=== PATIENT | female | born 1955 | race Hispanic/Latino ===

== ENCOUNTER 2020-04-16 21:32 | Inpatient (IN) | payer OTHER, MEDICARE ==
[2020-04-16] MEDS ORDERED: LORazepam 2 MG/ML VIAL ONE (21:52)
[2020-04-16] MEDS ORDERED: LORazepam 2 MG/ML VIAL IV ONE (21:55)
--- NOTE | 2020-04-16 22:13 | Emergency Department Report ---
ED Neuro Deficit HPI - General Chief Complaint: Neuro Symptoms/Deficit Stated Complaint: STROKE LIKE SYMPTOMS Time Seen by Provider: 04/16/20 21:39 Source: patient Mode of arrival: Wheelchair Limitations: No Limitations - History of Present Illness Initial Comments: [facility] Tele[facility]urology Consult [facility] Date of Service: 04/16/2020 21:36:36 Impression: Rule Out Acute Ischemic Stroke Comments/Sign-Out: 1 week of nausea vomiting, shaking to the right side. Would recommend that she obtains a CTA head/neck. In addition 1 gram Keppra IV x 1. In addition to this no alteplase, she is outside of the window. No Neuro IR. Right-sided 70% stenosis, will need vascular surgery consultation. Metrics: Last Known Well: 04/14/2020 21:45:09 [facility] Notification Time: 04/16/2020 21:36:24 Arrival Time: 04/16/2020 21:40:00 Stamp Time: 04/16/2020 21:36:36 Time First Login Attempt: 04/16/2020 21:41:21 Video Start Time: 04/16/2020 21:41:21 Symptoms: left sided deficits NIHSS Start Assessment Time: 04/16/2020 21:46:07 Patient is not a candidate for Alteplase/Activase. Patient was not deemed candidate for Alteplase/Activase thrombolytics because of Last Well Known Above 4.5 Hours. Video End Time: 04/16/2020 21:58:54 CT head showed no acute hemorrhage or acute core infarct. Clinical Presentation is Suggestive of Large Vessel Occlusive Disease, Recommendations are as Follows Reviewed, No Indication of Large Vessel Occlusive Thrombus, Patient is not an HEMANT Candidate. ED Physician notified of diagnostic impression and management plan on 04/16/2020 21:58:55 History of Present Illness: Patient is a 64 year old Male. Patient with history of TIA years ago, now with left sided deficits. She was on a cell phone and her left side became weak. Sudden onset that took place. She has had a headache for last few days, and has been vomiting a lot. She has had vomiting througouth the night. She was hiccuping this evening. The last time she felt normal was . She is shaking, and 1 mg of ativan is going ot be given. Past Medical History: Hypertension Anticoagulant use: Antiplatelet use: asa Examination: 1A: Level of Consciousness - Alert; keenly responsive + 0 1B: Ask Month and Age - Both Questions Right + 0 1C: Blink Eyes & Squeeze Hands - Performs Both Tasks + 0 2: Test Horizontal Extraocular Movements - Normal + 0 3: Test Visual Khan - No Visual Loss + 0 4: Test Facial Palsy (Use Grimace if Obtunded) - Normal symmetry + 0 5A: Test Left Arm Motor Drift - No Drift for 10 Seconds + 0 5B: Test Right Arm Motor Drift - No Drift for 10 Seconds + 0 6A: Test Left Leg Motor Drift - No Drift for 5 Seconds + 0 6B: Test Right Leg Motor Drift - No Drift for 5 Seconds + 0 7: Test Limb Ataxia (FNF/Heel-Wallace) - No Ataxia + 0 8: Test Sensation - Normal; No sensory loss + 0 9: Test Language/Aphasia - Normal; No aphasia + 0 10: Test Dysarthria - Normal + 0 11: Test Extinction/Inattention - No abnormality + 0 NIHSS Score: 0 Patient/Family was informed the Neurology Consult would happen via TeleHealth consult by way of interactive audio and video telecommunications and consented to receiving care in this manner. Due to the immediate potential for life-threatening deterioration due to underlying acute neurologic illness, I spent 35 minutes providing critical care. This time includes time for face to face visit via telemedicine, review of medical records, imaging studies and discussion of findings with providers, the patient and/or family. Dr Jean Pierre Reyes [facility] Case [id number] - Related Data Allergies/Adverse Reactions: Allergies Allergy/AdvReac Type Severity Reaction Status Date / Time amoxicillin [From Augmentin] Allergy Hives Verified 04/16/20 23:00 clavulanic acid Allergy Hives Verified 04/16/20 23:00 [From Augmentin] ED Review of Systems ROS: Stated complaint: STROKE LIKE SYMPTOMS Other details as noted in HPI ED Neuro Physical Exam - General Limitations: No Limitations Suspected Stroke: Yes - NIHSS Assessment Interval: Baseline (see note) 1a. Level of Consciousness: alert/keenly responsive (with sz) 1b. LOC Questions: aphasic 1c. LOC Commands: performs tasks correctly 2. Best Gaze: normal 3. Visual: no visual loss 4. Facial Palsy: normal symmetrical movement 5b. Motor Arm Right: no drift 5a. Motor Arm Left: drift 6a. Motor Leg Left: drift 6b. Motor Leg Right: no drift 7. Limb Ataxia: absent 8. Sensory: mild/moderate sensory loss 9. Best Language: mild/moderate aphasia 10. Dysarthria: normal 11. Extinction/Inattention: no abnormality Total Score: 6 Stroke Severity: Moderate Stroke ED Course Vital Signs 04/16/20 04/16/20 04/16/20 21:54 22:30 22:58 Temperature 98.7 F Pulse Rate 116 H 110 H 110 H Respiratory 12 14 25 H Rate Blood Pressure 165/84 168/82 168/82 O2 Sat by Pulse 98 99 98 Oximetry 04/16/20 04/16/20 04/16/20 23:00 23:15 23:30 Temperature Pulse Rate 110 H 116 H 103 H Respiratory 15 18 18 Rate Blood Pressure 162/86 160/86 173/89 O2 Sat by Pulse 99 98 98 Oximetry 04/16/20 04/17/20 04/17/20 23:46 00:00 00:15 Temperature Pulse Rate 131 H 112 H 110 H Respiratory 24 15 18 Rate Blood Pressure 174/104 166/92 163/82 O2 Sat by Pulse 98 100 98 Oximetry 04/17/20 04/17/20 04/17/20 00:30 00:45 01:00 Temperature Pulse Rate 121 H 112 H 110 H Respiratory 25 H 13 14 Rate Blood Pressure 176/104 154/89 171/91 O2 Sat by Pulse 98 98 99 Oximetry - Lab Data Result diagrams: 04/16/20 22:07 04/16/20 22:07 Lab Results 04/16/20 04/16/20 04/16/20 Range/Units 22:07 22:07 22:07 WBC 10.4 (4.5-11.0) K/mm3 RBC 3.46 L (3.65-5.03) M/mm3 Hgb 8.9 L (10.1-14.3) gm/dl Hct 27.0 L (30.3-42.9) % MCV 78 L (79-97) fl MCH 26 L (28-32) pg MCHC 33 (30-34) % RDW 17.0 H (13.2-15.2) % Plt Count 324 (140-440) K/mm3 Lymph % (Auto) 30.6 (13.4-35.0) % [place] % (Auto) 11.8 H (0.0-7.3) % Eos % (Auto) 2.9 (0.0-4.3) % Baso % (Auto) 0.6 (0.0-1.8) % Lymph # 3.2 (1.2-5.4) K/mm3 [place] # 1.2 H (0.0-0.8) K/mm3 Eos # 0.3 (0.0-0.4) K/mm3 Baso # 0.1 (0.0-0.1) K/mm3 Seg Neutrophils % 54.1 (40.0-70.0) % Seg Neutrophils # 5.6 (1.8-7.7) K/mm3 PT 13.8 (12.2-14.9) Sec. INR 1.05 (0.87-1.13) APTT 26.2 (24.2-36.6) Sec. Thrombin Time 17.5 (15.1-19.6) Sec. Sodium 136 L (137-145) mmol/L Potassium 4.2 (3.6-5.0) mmol/L Chloride 98.7 (98-107) mmol/L Carbon Dioxide 22 (22-30) mmol/L Anion Gap 20 mmol/L BUN 10 (7-17) mg/dL Creatinine 0.9 (0.6-1.2) mg/dL Estimated GFR > 60 ml/min BUN/Creatinine Ratio 11 % Glucose 236 H (65-100) mg/dL POC Glucose (70-105) Calcium 8.8 (8.4-10.2) mg/dL Total Bilirubin < 0.20 (0.1-1.2) mg/dL AST 14 (5-40) units/L ALT 12 (7-56) units/L Alkaline Phosphatase 47 (35-129) units/L Total Creatine Kinase 67 (30-135) units/L CK-MB (CK-2) < 1.0 (0.0-4.0) ng/mL CK-MB (CK-2) Rel Index 1.4 (0-4) Troponin T < 0.010 (0.00-0.029) ng/mL Total Protein 6.7 (6.3-8.2) g/dL Albumin 3.4 L (3.9-5) g/dL Albumin/Globulin Ratio 1.0 % TSH (0.270-4.200) mlU/mL 04/16/20 04/16/20 Range/Units 22:07 22:37 WBC (4.5-11.0) K/mm3 RBC (3.65-5.03) M/mm3 Hgb (10.1-14.3) gm/dl Hct (30.3-42.9) % MCV (79-97) fl MCH (28-32) pg MCHC (30-34) % RDW (13.2-15.2) % Plt Count (140-440) K/mm3 Lymph % (Auto) (13.4-35.0) % [place] % (Auto) (0.0-7.3) % Eos % (Auto) (0.0-4.3) % Baso % (Auto) (0.0-1.8) % Lymph # (1.2-5.4) K/mm3 [place] # (0.0-0.8) K/mm3 Eos # (0.0-0.4) K/mm3 Baso # (0.0-0.1) K/mm3 Seg Neutrophils % (40.0-70.0) % Seg Neutrophils # (1.8-7.7) K/mm3 PT (12.2-14.9) Sec. INR (0.87-1.13) APTT (24.2-36.6) Sec. Thrombin Time (15.1-19.6) Sec. Sodium (137-145) mmol/L Potassium (3.6-5.0) mmol/L Chloride (98-107) mmol/L Carbon Dioxide (22-30) mmol/L Anion Gap mmol/L BUN (7-17) mg/dL Creatinine (0.6-1.2) mg/dL Estimated GFR ml/min BUN/Creatinine Ratio % Glucose (65-100) mg/dL POC Glucose 238 H (70-105) Calcium (8.4-10.2) mg/dL Total Bilirubin (0.1-1.2) mg/dL AST (5-40) units/L ALT (7-56) units/L Alkaline Phosphatase (35-129) units/L Total Creatine Kinase (30-135) units/L CK-MB (CK-2) (0.0-4.0) ng/mL CK-MB (CK-2) Rel Index (0-4) Troponin T (0.00-0.029) ng/mL Total Protein (6.3-8.2) g/dL Albumin (3.9-5) g/dL Albumin/Globulin Ratio % TSH 0.555 (0.270-4.200) mlU/mL Critical care time in (mins) excluding proc time.: 35 Critical care attestation.: If time is entered above; I have spent that time in minutes in the direct care of this critically ill patient, excluding procedure time. ED Disposition Clinical Impression: Left-sided weakness, Numbness on left side Hypertension Qualifiers: Hypertension type: essential hypertension Qualified Code(s): I10 - Essential (primary) hypertension Anemia Qualifiers: Anemia type: unspecified type Qualified Code(s): D64.9 - Anemia, unspecified Disposition: 09 OP ADMIT IP TO THIS HOSP Is pt being admited?: Yes Does the pt Need Aspirin: Yes Condition: Serious Time of Disposition: 01:38
--- NOTE | 2020-04-16 22:15 | Cat Scan Report ---
CT head/brain wo con INDICATION: Stroke symptoms. TECHNIQUE: Routine CT head. All CT scans at this location are performed using CT dose reduction for A JOHN by means of automated exposure control. COMPARISON: None. FINDINGS: Intracranial: Rodriguez-white matter differentiation is maintained. No intracranial hemorrhage. No extra a xial collection. Prominent ventricular caliber with sharp callososeptal angle. No herniation. Remote thalamic lacunar infarctions. Sinuses: Paranasal sinuses and mastoid air cells are essentially clear. Orbits: Globes are intact. Calvarium: No acute fracture. IMPRESSION: 1. No evidence for acute infarction. No hemorrhage. 2. Prominent ventricular caliber out of portion for atrophy. There is nonspecific but can be seen in the setting normal pressure hydrocephalus. 3. Remote thalamic lacunar infarctions. Informed Dr. Kerr at 9:03pm Signer Name: Khalif Burch MD Signed: 04/16/2020 10:10 PM Workstation Name: [id number]
[2020-04-16 22:16] LABS: Basophils # (Auto) 0.1 K/mm3 (0.0-0.1); Basophils % (Auto) 0.6 % (0.0-1.8); Eosinophils # (Auto) 0.3 K/mm3 (0.0-0.4); Eosinophils % (Auto) 2.9 % (0.0-4.3); Hemoglobin 8.9 gm/dl (10.1-14.3); Lymphocytes # (Auto) 3.2 K/mm3 (1.2-5.4); Lymphocytes % (Auto) 30.6 % (13.4-35.0); Mean Corpuscular HGB Conc 33 % (30-34); Mean Corpuscular Volume 78 fl (79-97); Monocytes # (Auto) 1.2 K/mm3 (0.0-0.8); Monocytes % (Auto) 11.8 % (0.0-7.3); Platelet Count 324 K/mm3 (140-440); Red Blood Count 3.46 M/mm3 (3.65-5.03)
[2020-04-16 22:29] LABS: INR 1.05 (0.87-1.13)
[2020-04-16 22:30] LABS: Partial Thromboplastin Time 26.2 Sec. (24.2-36.6); Thrombin Time 17.5 Sec. (15.1-19.6)
--- NOTE | 2020-04-16 22:37 | Emergency Department Report ---
HPI - General Chief Complaint: Neuro Symptoms/Deficit Time Seen by Provider: 04/16/20 21:39 - HPI HPI: This is a 64-year-old -[place] female who presents to the emergency department from home with a complaint of nausea and vomiting and left-sided n umbness and weakness. The patient has been having nausea and vomiting at night the past 4 nights. The patient says "it hits me out of nowhere and I throw up like a [place]." However the reason the patient came into the emergency department this evening is because the patient tried to use the phone this evening, around 8 PM, and began having left arm numbness and weakness. Then the patient began feeling as if the left side of her mouth was numb. She called for her who brought her in to be seen. She did not take anything for symptoms prior to presentation. Patient has been having intermittent frontal headaches over the past few days. She denies any change in vision but sometimes says that she sees "halos", but also attributes that to her new glasses. The patient follows at [facility] for primary care. No recent travel or sick contacts at home. ED Past Medical Hx - Past Medical History Previous Medical History?: Yes Hx Hypertension: Yes Hx CVA: (TIA) - Social History Smoking Status: Never Smoker Substance Use Type: None ED Review of Systems ROS: Stated complaint: STROKE LIKE SYMPTOMS Other details as noted in HPI Comment: All other systems reviewed and negative Constitutional: denies: chills, fever Eyes: denies: eye pain, vision change ENT: denies: ear pain, throat pain Respiratory: denies: cough, shortness of breath Cardiovascular: denies: chest pain, palpitations Gastrointestinal: nausea, vomiting. denies: abdominal pain Genitourinary: denies: dysuria, discharge Musculoskeletal: denies: back pain, arthralgia Skin: denies: rash, lesions Neurological: headache, weakness, numbness Physical Exam - Physical Exam Vital Signs: Vital Signs 04/16/20 21:54 Temperature 98.7 F Pulse Rate 116 H Respiratory 12 Rate Blood Pressure 165/84 O2 Sat by Pulse 98 Oximetry Physical Exam: GENERAL: The patient is well-developed well-nourished. HENT: Normocephalic. Atraumatic. Patient has moist mucous membranes. EYES: Extraocular motions are intact. Pupils equal reactive to light bilaterally. No nystagmus. NECK: Supple. Trachea is midline. CHEST/LUNGS: Clear to auscultation. There is no respiratory distress noted. HEART/CARDIOVASCULAR: Regular. There is mild tachycardia. There is no murmur. ABDOMEN: Abdomen is soft, nontender. Patient has normal bowel sounds. There is no abdominal distention. SKIN: Skin is warm and dry. NEURO: The patient is awake, alert, and oriented. The patient is cooperative. Decrease sensation to the left side of the face, arm and leg when compared to the right side. No facial asymmetry. Normal speech. There is left arm weakness without significant movement against gravity. MUSCULOSKELETAL: There is no tenderness or deformity. Radial pulse +2/4 bilaterally. ED Course Vital Signs 04/16/20 21:54 Temperature 98.7 F Pulse Rate 116 H Respiratory 12 Rate Blood Pressure 165/84 O2 Sat by Pulse 98 Oximetry - Reevaluation(s) Reevaluation #1: 04/16/20 23:49 Lab Results 04/16/20 04/16/20 04/16/20 Range/Units 22:07 22:07 22:07 WBC 10.4 (4.5-11.0) K/mm3 RBC 3.46 L (3.65-5.03) M/mm3 Hgb 8.9 L (10.1-14.3) gm/dl Hct 27.0 L (30.3-42.9) % MCV 78 L (79-97) fl MCH 26 L (28-32) pg MCHC 33 (30-34) % RDW 17.0 H (13.2-15.2) % Plt Count 324 (140-440) K/mm3 Lymph % (Auto) 30.6 (13.4-35.0) % [place] % (Auto) 11.8 H (0.0-7.3) % Eos % (Auto) 2.9 (0.0-4.3) % Baso % (Auto) 0.6 (0.0-1.8) % Lymph # 3.2 (1.2-5.4) K/mm3 [place] # 1.2 H (0.0-0.8) K/mm3 Eos # 0.3 (0.0-0.4) K/mm3 Baso # 0.1 (0.0-0.1) K/mm3 Seg Neutrophils % 54.1 (40.0-70.0) % Seg Neutrophils # 5.6 (1.8-7.7) K/mm3 PT 13.8 (12.2-14.9) Sec. INR 1.05 (0.87-1.13) APTT 26.2 (24.2-36.6) Sec. Thrombin Time 17.5 (15.1-19.6) Sec. Sodium 136 L (137-145) mmol/L Potassium 4.2 (3.6-5.0) mmol/L Chloride 98.7 (98-107) mmol/L Carbon Dioxide 22 (22-30) mmol/L Anion Gap 20 mmol/L BUN 10 (7-17) mg/dL Creatinine 0.9 (0.6-1.2) mg/dL Estimated GFR > 60 ml/min BUN/Creatinine Ratio 11 % Glucose 236 H (65-100) mg/dL POC Glucose (70-105) Calcium 8.8 (8.4-10.2) mg/dL Total Bilirubin < 0.20 (0.1-1.2) mg/dL AST 14 (5-40) units/L ALT 12 (7-56) units/L Alkaline Phosphatase 47 (35-129) units/L Total Creatine Kinase 67 (30-135) units/L CK-MB (CK-2) < 1.0 (0.0-4.0) ng/mL CK-MB (CK-2) Rel Index 1.4 (0-4) Troponin T < 0.010 (0.00-0.029) ng/mL Total Protein 6.7 (6.3-8.2) g/dL Albumin 3.4 L (3.9-5) g/dL Albumin/Globulin Ratio 1.0 % TSH (0.270-4.200) mlU/mL 04/16/20 04/16/20 Range/Units 22:07 22:37 WBC (4.5-11.0) K/mm3 RBC (3.65-5.03) M/mm3 Hgb (10.1-14.3) gm/dl Hct (30.3-42.9) % MCV (79-97) fl MCH (28-32) pg MCHC (30-34) % RDW (13.2-15.2) % Plt Count (140-440) K/mm3 Lymph % (Auto) (13.4-35.0) % [place] % (Auto) (0.0-7.3) % Eos % (Auto) (0.0-4.3) % Baso % (Auto) (0.0-1.8) % Lymph # (1.2-5.4) K/mm3 [place] # (0.0-0.8) K/mm3 Eos # (0.0-0.4) K/mm3 Baso # (0.0-0.1) K/mm3 Seg Neutrophils % (40.0-70.0) % Seg Neutrophils # (1.8-7.7) K/mm3 PT (12.2-14.9) Sec. INR (0.87-1.13) APTT (24.2-36.6) Sec. Thrombin Time (15.1-19.6) Sec. Sodium (137-145) mmol/L Potassium (3.6-5.0) mmol/L Chloride (98-107) mmol/L Carbon Dioxide (22-30) mmol/L Anion Gap mmol/L BUN (7-17) mg/dL Creatinine (0.6-1.2) mg/dL Estimated GFR ml/min BUN/Creatinine Ratio % Glucose (65-100) mg/dL POC Glucose 238 H (70-105) Calcium (8.4-10.2) mg/dL Total Bilirubin (0.1-1.2) mg/dL AST (5-40) units/L ALT (7-56) units/L Alkaline Phosphatase (35-129) units/L Total Creatine Kinase (30-135) units/L CK-MB (CK-2) (0.0-4.0) ng/mL CK-MB (CK-2) Rel Index (0-4) Troponin T (0.00-0.029) ng/mL Total Protein (6.3-8.2) g/dL Albumin (3.9-5) g/dL Albumin/Globulin Ratio % TSH 0.555 (0.270-4.200) mlU/mL - Consultations Consultation #1: 04/16/20 23:51 Patient was seen by the telemedicine neurologist, Dr. Reyes, immediately upon initiation of the code stroke. He feels that the patient symptoms questionably began a few days ago with the nausea, vomiting and generalized weakness, and therefore the patient is not a TPA candidate. He did recommend CT angiography studies of the head and neck. ED Medical Decision Making - Lab Data Result diagrams: 04/16/20 22:07 04/16/20 22:07 - EKG Data -: EKG Interpreted by [place] EKG shows normal: sinus rhythm, axis, intervals, QRS complexes, ST-T waves Rate: tachycardia (113 bpm) - EKG Data When compared to previous EKG there are: previous EKG unavailable Interpretation: normal EKG (With tachycardia at 113 bpm.) - Radiology Data Radiology results: report reviewed CT head/brain wo con INDICATION: Stroke symptoms. TECHNIQUE: Routine CT head. All CT scans at this location are performed using CT dose reduction for ALARA by means of automated exposure control. COMPARISON: None. FINDINGS: Intracranial: Rodriguez-white matter differentiation is maintained. No intracranial hemorrhage. No extra axial collection. Prominent ventricular caliber with sharp callososeptal angle. No herniation. Remote thalamic lacunar infarctions. Sinuses: Paranasal sinuses and mastoid air cells are essentially clear. Orbits: Globes are intact. Calvarium: No acute fracture. IMPRESSION: 1. No evidence for acute infarction. No hemorrhage. 2. Prominent ventricular caliber out of portion for atrophy. There is nonspecific but can be seen in the setting normal pressure hydrocephalus. 3. Remote thalamic lacunar infarctions. CT angio head, CT angio neck HISTORY: Stroke symptoms. COMPARISON: None. TECHNIQUE: CTA of the neck and head is performed after IV contrast. 3-D/MIP reformats were postprocessed. Percentage stenosis is determined by direct quantitative measurements of diseased internal carotid artery diameter compared with normal distal internal carotid artery reference segments or by criteria similar to NASCET where applicable. All CT scans at this location are performed using CT dose reduction for ALARA by means of automated exposure control. FINDINGS: CTA NECK: Aortic arch: No significant abnormality. Cervical vertebral arteries: No occlusion or hemodynamically significant stenosis. Common Carotid arteries: Atherosclerosis of the bilateral carotid bulbs. There is approximately 50% stenosis of the right carotid bulb. No significant narrowing of the left carotid bulb. Internal carotid arteries: Moderate approximately 70% stenosis of the right proximal internal carotid artery. Enlarged multinodular thyroid gland. CTA HEAD: Intracranial vertebral arteries: No occlusion or significant stenosis. Basilar artery: No occlusion or significant stenosis. Posterior cerebral arteries: No occlusion or significant stenosis. Intracranial internal carotid arteries: No occlusion or significant stenosis. Anterior cerebral arteries: No occlusion or significant stenosis. Middle cerebral arteries: No occlusion or significant stenosis. No aneurysm. Additional findings: None. IMPRESSION: 1. CTA NECK: Atherosclerosis with approximately 70% stenosis of the proximal right internal carotid artery. 2. CTA HEAD: No occlusion or significant stenosis of the major intracranial vasculature. - Medical Decision Making This patient presents to the emergency department complaint of left arm numbness and weakness that started earlier this evening. However the patient has been having severe nausea and vomiting every evening, over the past 4 days, that has been associated with some generalized weakness complaints. On examination the patient has subjective decrease sensation to the left face/arm/leg and has significant left upper extremity drift. The patient had a CT scan of the head immediately upon initiation of the code stroke. This resulted as negative for any acute hemorrhage or signs of acute ischemia or large vessel occlusion. The patient had a CT angiography of the head and neck immediately afterwards that resulted as showing a 70% stenosis to the right internal carotid artery, but otherwise no obvious occlusion or thrombus. The patient's labs have been mostly unremarkable except for some anemia with a hemoglobin of 8.9. The patient will be admitted to the hospital for further evaluation and treatment and was accepted for admission by the hospitalist, Dr. Harry. Critical Care Time: Yes Critical care time in (mins) excluding proc time.: 35 Critical care attestation.: If time is entered above; I have spent that time in minutes in the direct care of this critically ill patient, excluding procedure time. Critical care time was spent on this patient in doing her initial evaluation, multiple re- evaluations, ordering and interpretation of labs and imaging, discussion with the radiologist and telemedicine neurologist, and multiple discussions with the patient. Critical Care Time: 35 minutes ED Disposition Clinical Impression: Left-sided weakness, Numbness on left side CVA (cerebral vascular accident) Qualifiers: CVA mechanism: unspecified Qualified Code(s): I63.9 - Cerebral infarction, unspecified Hypertension Qualifiers: Hypertension type: essential hypertension Qualified Code(s): I10 - Essential (primary) hypertension Anemia Qualifiers: Anemia type: unspecified type Qualified Code(s): D64.9 - Anemia, unspecified Disposition: DC-09 OP ADMIT IP TO THIS HOSP Is pt being admited?: Yes Condition: Serious Time of Disposition: 23:12 - Assessment Assessment Interval: Baseline - Level of Consciousness 1a. Level of Consciousness: alert/keenly responsive - LOC Questions 1b. LOC Questions: answers both correctly - LOC Command 1c. LOC Commands: performs tasks correctly - Best Gaze 2. Best Gaze: normal - Visual 3. Visual: no visual loss - Facial Palsy 4. Facial Palsy: normal symmetrical movement - Motor Arm 5a. Motor Arm Left: no gravity effort 5b. Motor Arm Right: no drift - Motor Leg 6a. Motor Leg Left: no drift 6b. Motor Leg Right: no drift - Limb Ataxia 7. Limb Ataxia: absent - Sensory 8. Sensory: mild/moderate sensory loss - Best Language 9. Best Language: no aphasia - Dysarthria 10. Dysarthria: normal - Extinction and Inattention 11. Extinction/Inattention: no abnormality - Scoring Total Score: 4 Stroke Severity: Minor Stroke
[2020-04-16 22:46] LABS: Alanine Aminotransferase 12 units/L (7-56); Albumin 3.4 g/dL (3.9-5); BUN/Creatinine Ratio 11; Blood Urea Nitrogen 10 mg/dL (7-17); Calcium 8.8 mg/dL (8.4-10.2); Hemolysis Index 1
[2020-04-16 22:48] LABS: Creatine Kinase MB < 1.0 ng/mL (0.0-4.0)
--- NOTE | 2020-04-16 23:05 | Cat Scan Report ---
CT angio head, CT angio neck HISTORY: Stroke symptoms. COMPARISON: None. TECHNIQUE: CTA of the neck and head is performed after IV contrast. 3-D/MIP reformats were postproces sed. Percentage stenosis is determined by direct quantitative measurements of diseased internal anthony tid artery diameter compared with normal distal internal carotid artery reference segments or by crit eria similar to NASCET where applicable. All CT scans at this location are performed using CT dose re duction for ALARA by means of automated exposure control. FINDINGS: CTA NECK: Aortic arch: No significant abnormality. Cervical vertebral arteries: No occlusion or hemodynamically significant stenosis. Common Carotid arteries: Atherosclerosis of the bilateral carotid bulbs. There is approximately 50% s tenosis of the right carotid bulb. No significant narrowing of the left carotid bulb. Internal carotid arteries: Moderate approximately 70% stenosis of the right proximal internal carotid artery. Enlarged multinodular thyroid gland. CTA HEAD: Intracranial vertebral arteries: No occlusion or significant stenosis. Basilar artery: No occlusion or significant stenosis. Posterior cerebral arteries: No occlusion or significant stenosis. Intracranial internal carotid arteries: No occlusion or significant stenosis. Anterior cerebral arteries: No occlusion or significant stenosis. Middle cerebral arteries: No occlusion or significant stenosis. No aneurysm. Additional findings: None. IMPRESSION: 1. CTA NECK: Atherosclerosis with approximately 70% stenosis of the proximal right internal carotid artery. 2. CTA HEAD: No occlusion or significant stenosis of the major intracranial vasculature. Signer Name: Khalif Burch MD Signed: 04/16/2020 11:01 PM Workstation Name: [id number]
[2020-04-16] MEDS ORDERED: MAGNESIUM HYDROXIDE (MOM) ORAL LIQD UDC PO PRN ×2 (23:22)
[2020-04-16] MEDS ORDERED: ONDANSETRON 4 MG/2 ML INJ IV PRN ×2 (23:22)
[2020-04-16] MEDS ORDERED: METOCLOPRAMIDE 10 MG TAB PO PRN (23:22)
[2020-04-16] MEDS ORDERED: PROMETHAZINE 25 MG RECT SUPP PR PRN (23:22)
[2020-04-16] MEDS ORDERED: ACETAMINOPHEN 325 MG TAB PO PRN ×2 (23:22)
--- NOTE | 2020-04-16 23:36 | History and Physical Report ---
History of Present Illness Date of examination: 04/16/20 Date of admission: 04/16/2020 Chief complaint: Left Sided Weakness History of present illness: 64-year-old -[place] female presenting to the emergency room today complaining of left-sided weakness and numbness. Patient also indicates that she has been having nausea and vomiting intermittently over the past 4 days. She was using the phone earlier this evening and suddenly started having left upper extremity numbness and weakness. She also felt that the left side of her face was feeling numb and had some mild slurred speech. She has also been having some headache for the past few days, she denies any blurry vision. Patient denies any fever or chills, no chest pain no shortness of breath, denies any sick contacts and no recent travel, denies any contact with anyone with COVID-19. Evaluation in the emergency room today reveals Atherosclerosis with approximately 70% stenosis of the proximal right internal carotid artery on CTA of the neck. Past History Past Medical History: hypertension, other (TIA) Past Surgical History: No surgical history Social history: no significant social history Family history: no significant family history Medications and Allergies Allergies Allergy/AdvReac Type Severity Reaction Status Date / Time amoxicillin [From Augmentin] Allergy Hives Verified 04/16/20 23:00 clavulanic acid Allergy Hives Verified 04/16/20 23:00 [From Augmentin] Home Medications Medication Instructions Recorded Confirmed Last Taken Type Amlodipine Besylate [Norvasc] 5 mg PO DAILY 04/17/20 04/17/20 Unknown History Aspirin 325 mg PO ONCE 04/17/20 04/17/20 Unknown History Insulin NPH Human Isophane 22 unit SQ BID 04/17/20 04/17/20 Unknown History [Novolin N] Metformin HCl [metFORMIN] 1,000 mg PO BID 04/17/20 04/17/20 Unknown History lisinopriL [Zestril TAB] 10 mg PO QDAY 04/17/20 04/17/20 Unknown History Active Meds: Active Medications Acetaminophen (Tylenol) 650 mg PO Q4H PRN PRN Reason: Pain MILD(1-3)/Fever >100.5/WEISS Acetaminophen (Tylenol) 650 mg PO Q4H PRN PRN Reason: Pain, Mild (1-3) Aspirin (Aspirin) 325 mg PO QDAY [facility] Atorvastatin Calcium (Lipitor) 40 mg PO QHS [facility] Bisacodyl (Dulcolax) 10 mg [place] QDAY PRN PRN Reason: Constipation Magnesium Hydroxide (Milk Of Magnesia) 30 ml PO Q4H PRN PRN Reason: Constipation Magnesium Hydroxide (Milk Of Magnesia) 30 ml PO Q4H PRN PRN Reason: Constipation Metoclopramide HCl (Reglan) 10 mg PO Q6H PRN PRN Reason: Nausea And Vomiting Ondansetron HCl (Zofran) 4 mg IV Q8H PRN PRN Reason: Nausea And Vomiting Ondansetron HCl (Zofran) 4 mg IV Q8H PRN PRN Reason: Nausea And Vomiting Promethazine HCl (Phenergan) 25 mg AK Q6H PRN PRN Reason: Nausea And Vomiting Sodium Chloride (Sodium Chloride Flush Syringe 10 Ml) 10 ml IV BID [facility] Sodium Chloride (Sodium Chloride Flush Syringe 10 Ml) 10 ml IV PRN PRN PRN Reason: LINE FLUSH Sodium Chloride (Sodium Chloride Flush Syringe 10 Ml) 10 ml INJ PRN PRN PRN Reason: LINE FLUSH Review of Systems Constitutional: no fever, no chills Ears, nose, mouth and throat: no nasal congestion, no sore throat Cardiovascular: no chest pain, no palpitations Respiratory: no cough, no shortness of breath Gastrointestinal: no abdominal pain, no nausea, no vomiting, no diarrhea Genitourinary Female: no pelvic pain, no flank pain, no dysuria, no hematuria Musculoskeletal: no neck pain, no low back pain Integumentary: no rash, no pruritis Neurological: weakness (Left Sided), no headaches, no confusion Psychiatric: no anxiety, no depression Exam - Constitutional Vitals: Temp Pulse Resp BP Pulse Ox 98.7 F 110 H 14 168/82 99 04/16/20 21:54 04/16/20 22:30 04/16/20 22:30 04/16/20 22:30 04/16/20 22:30 General appearance: Present: no acute distress, well-nourished - EENT Eyes: Present: PERRL, EOM intact. Absent: scleral icterus ENT: hearing intact, clear oral mucosa, dentition normal - Neck Neck: Present: supple - Respiratory Respiratory effort: normal Respiratory: bilateral: CTA - Cardiovascular Rhythm: regular Heart Sounds: Present: S1 & S2. Absent: gallop, systolic murmur, diastolic murmur, rub - Extremities Extremities: no ischemia, pulses intact, pulses symmetrical, No edema, Full ROM Peripheral Pulses: within normal limits - Abdominal General gastrointestinal: Present: soft, non-tender, non-distended, normal bowel sounds. Absent: mass - Integumentary Integumentary: Present: clear, warm, dry. Absent: rash - Musculoskeletal Musculoskeletal: left sided weakness (left sided weakness. Left upper extremity weakness more pronounced than the left lower extremity.) - Psychiatric Psychiatric: appropriate mood/affect, intact judgment & insight, memory intact, cooperative - Neurologic Neurologic: CNII-XII intact, moves all extremities HEART Score - HEART Score Troponin: Troponin T < 0.010 ng/mL (0.00-0.029) 04/16/20 22:07 Results - Labs CBC & Chem 7: 04/16/20 22:07 04/17/20 04:11 Labs: Abnormal lab results 04/16/20 04/16/20 04/16/20 Range/Units 22:07 22:07 22:37 RBC 3.46 L (3.65-5.03) M/mm3 Hgb 8.9 L (10.1-14.3) gm/dl Hct 27.0 L (30.3-42.9) % MCV 78 L (79-97) fl MCH 26 L (28-32) pg RDW 17.0 H (13.2-15.2) % [place] % (Auto) 11.8 H (0.0-7.3) % [place] # 1.2 H (0.0-0.8) K/mm3 Sodium 136 L (137-145) mmol/L Glucose 236 H (65-100) mg/dL POC Glucose 238 H (70-105) Albumin 3.4 L (3.9-5) g/dL Assessment and Plan - Patient Problems (1) CVA (cerebral vascular accident) Current Visit: Yes Qualifiers: CVA mechanism: unspecified Qualified Code(s): I63.9 - Cerebral infarction, unspecified Plan to address problem: Patient admitted and placed on daily aspirin. We will schedule patient for MRI. We will request a neurology follow-up. We will also request physical therapy evaluation. (2) Anemia Current Visit: Yes Status: Acute Qualifiers: Anemia type: unspecified type Qualified Code(s): D64.9 - Anemia, unspecified Plan to address problem: Possibly chronic. Will monitor CBC. (3) Hypertension Current Visit: Yes Status: Acute Qualifiers: Hypertension type: essential hypertension Qualified Code(s): I10 - Es sential (primary) hypertension Plan to address problem: We will resume routine home medications and monitor vital signs closely. (4) Diabetes mellitus Current Visit: Yes Status: Acute Plan to address problem: We will monitor Accu-Cheks. (5) DVT prophylaxis Current Visit: Yes Status: Acute Plan to address problem: Patient placed on subcutaneous Lovenox. (6) Full code status Current Visit: Yes Status: Acute
[2020-04-16] MEDS ORDERED: ASPIRIN 81 MG TAB CHEW PO ONE (23:55)
[2020-04-17 01:19] LABS: Bilirubin,Urine NEG (Negative); Blood,Urine NEG (Negative); Color,Urine Colorless (Yellow); Protein,Urine <15 mg/dL mg/dL (Negative); RBC,Urine < 1.0 /HPF (0.0-6.0); Urobilinogen,Urine < 2.0 mg/dL (<2.0); WBC,Urine < 1.0 /HPF (0.0-6.0)
[2020-04-17 01:28] LABS: Amphetamine Screen,Urine PRESUMPTIVE NEGATIVE; Benzodiazepines Screen,Urine PRESUMPTIVE NEGATIVE; Cannabinoid Screen,Urine PRESUMPTIVE NEGATIVE; Cocaine Screen,Urine PRESUMPTIVE NEGATIVE; Methadone Screen,Urine PRESUMPTIVE NEGATIVE; Opiate Screen,Urine PRESUMPTIVE NEGATIVE
[2020-04-17] MEDS ORDERED: ASPIRIN 325 MG TAB ONE (03:13)
[2020-04-17 05:08] LABS: INR 1.01 (0.87-1.13)
[2020-04-17 05:19] LABS: BUN/Creatinine Ratio 10; Blood Urea Nitrogen 8 mg/dL (7-17); Calcium 9.6 mg/dL (8.4-10.2); Chol/HDL Ratio 3.44 %; HDL Cholesterol 49 mg/dL (40-59); Hemolysis Index 5; LDL Cholesterol,Direct 105 mg/dL (50-130)
[2020-04-17] MEDS ORDERED: DEXTROSE 50% IN WATER (25GM) 50 ML SYRINGE IV PRN (06:35)
--- NOTE | 2020-04-17 10:05 | Consultation ---
History of Present Illness Consult date: 04/17/20 Reason for Consult: left side numbness and weakness History of present illness: 64-year-old -[place] female presenting to the emergency room today complaining of left-sided weakness and numbness. Patient also indicates that she has been having nausea and vomiting intermittently over the past 4 days. She was using the phone earlier this evening and suddenly started having left upper extremity numbness and weakness. She also felt that the left side of her face was feeling numb and had some mild slurred speech. She has also been weiss ving some headache for the past few days, she denies any blurry vision. Patient denies any fever or chills, no chest pain no shortness of breath, denies any sick contacts and no recent travel, denies any contact with anyone with COVID-19. Evaluation in the emergency room today reveals Atherosclerosis with approximately 70% stenosis of the proximal right internal carotid artery on CTA of the neck. Past History Past Medical History: hypertension, other (TIA) Past Surgical History: No surgical history Social history: no significant social history Family history: no significant family history Medications and Allergies Allergies Allergy/AdvReac Type Severity Reaction Status Date / Time amoxicillin [From Augmentin] Allergy Hives Verified 04/16/20 23:00 clavulanic acid Allergy Hives Verified 04/16/20 23:00 [From Augmentin] Home Medications Medication Instructions Recorded Confirmed Last Taken Type Amlodipine Besylate [Norvasc] 5 mg PO DAILY 04/17/20 04/17/20 Unknown History Aspirin 325 mg PO ONCE 04/17/20 04/17/20 Unknown History Insulin NPH Human Isophane 22 unit SQ BID 04/17/20 04/17/20 Unknown History [Novolin N] Metformin HCl [metFORMIN] 1,000 mg PO BID 04/17/20 04/17/20 Unknown History lisinopriL [Zestril TAB] 10 mg PO QDAY 04/17/20 04/17/20 Unknown History Active Meds: Active Medications Acetaminophen (Tylenol) 650 mg PO Q4H PRN PRN Reason: Pain MILD(1-3)/Fever >100.5/WEISS Acetaminophen (Tylenol) 650 mg PO Q4H PRN PRN Reason: Pain, Mild (1-3) Aspirin (Aspirin) 325 mg PO QDAY [facility] Atorvastatin Calcium (Lipitor) 40 mg PO QHS [facility] Bisacodyl (Dulcolax) 10 mg [place] QDAY PRN PRN Reason: Constipation Magnesium Hydroxide (Milk Of Magnesia) 30 ml PO Q4H PRN PRN Reason: Constipation Magnesium Hydroxide (Milk Of Magnesia) 30 ml PO Q4H PRN PRN Reason: Constipation Metoclopramide HCl (Reglan) 10 mg PO Q6H PRN PRN Reason: Nausea And Vomiting Ondansetron HCl (Zofran) 4 mg IV Q8H PRN PRN Reason: Nausea And Vomiting Ondansetron HCl (Zofran) 4 mg IV Q8H PRN PRN Reason: Nausea And Vomiting Promethazine HCl (Phenergan) 25 mg [place] Q6H PRN PRN Reason: Nausea And Vomiting Sodium Chloride (Sodium Chloride Flush Syringe 10 Ml) 10 ml IV BID [facility] Sodium Chloride (Sodium Chloride Flush Syringe 10 Ml) 10 ml IV PRN PRN PRN Reason: LINE FLUSH Sodium Chloride (Sodium Chloride Flush Syringe 10 Ml) 10 ml INJ PRN PRN PRN Reason: LINE FLUSH Review of Systems Constitutional: no fever, no chills Ears, nose, mouth and throat: no nasal congestion, no sore throat Cardiovascular: no chest pain, no palpitations Respiratory: no cough, no shortness of breath Gastrointestinal: no abdominal pain, no nausea, no vomiting, no diarrhea Genitourinary Female: no pelvic pain, no flank pain, no dysuria, no hematuria Musculoskeletal: no neck pain, no low back pain Integumentary: no rash, no pruritis Neurological: weakness (Left Sided), no headaches, no confusion Psychiatric: no anxiety, no depression Past History Past Medical History: hypertension, other (TIA) Past Surgical History: No surgical history Social history: no significant social history Family history: no significant family history Medications and Allergies Allergies Allergy/AdvReac Type Severity Reaction Status Date / Time amoxicillin [From Augmentin] Allergy Hives Verified 04/16/20 23:00 clavulanic acid Allergy Hives Verified 04/16/20 23:00 [From Augmentin] Home Medications Medication Instructions Recorded Confirmed Last Taken Type Amlodipine Besylate [Norvasc] 5 mg PO DAILY 04/17/20 04/17/20 Unknown History Aspirin 325 mg PO ONCE 04/17/20 04/17/20 Unknown History Insulin NPH Human Isophane 22 unit SQ BID 04/17/20 04/17/20 Unknown History [Novolin N] Metformin HCl [metFORMIN] 1,000 mg PO BID 04/17/20 04/17/20 Unknown History lisinopriL [Zestril TAB] 10 mg PO QDAY 04/17/20 04/17/20 Unknown History Active Meds: Active Medications Acetaminophen (Tylenol) 650 mg PO Q4H PRN PRN Reason: Pain MILD(1-3)/Fever >100.5/WEISS Amlodipine Besylate (Amlodipine) 5 mg PO DAILY [facility] Aspirin (Aspirin) 325 mg PO QDAY [facility] Atorvastatin Calcium (Lipitor) 40 mg PO QHS [facility] Bisacodyl (Dulcolax) 10 mg [place] QDAY PRN PRN Reason: Constipation Dextrose (D50w (25gm) Syringe) 50 ml IV Q30MIN PRN; Protocol PRN Reason: Hypoglycemia Enoxaparin Sodium (Enoxaparin) 40 mg SUB-Q QDAY@2200 [facility]; Protocol Insulin Human Lispro (Humalog) 0 unit SUB-Q ACHS [facility]; Protocol Lisinopril (Zestril) 10 mg PO QDAY [facility] Magnesium Hydroxide (Milk Of Magnesia) 30 ml PO Q4H PRN PRN Reason: Constipation Metoclopramide HCl (Reglan) 10 mg PO Q6H PRN PRN Reason: Nausea And Vomiting Ondansetron HCl (Zofran) 4 mg IV Q8H PRN PRN Reason: Nausea And Vomiting Promethazine HCl (Phenergan) 25 mg MA Q6H PRN PRN Reason: Nausea And Vomiting Sodium Chloride (Sodium Chloride Flush Syringe 10 Ml) 10 ml IV BID [facility] Sodium Chloride (Sodium Chloride Flush Syringe 10 Ml) 10 ml IV PRN PRN PRN Reason: LINE FLUSH Physical Examination - Vital Signs Vital Signs: Vital Signs Temp Pulse Resp BP Pulse Ox 98.7 F 116 H 12 165/84 98 04/16/20 21:54 04/16/20 21:54 04/16/20 21:54 04/16/20 21:54 04/16/20 21:54 - Constitutional General appearance: comfortable - EENT EENT: Present: PERRL - Respiratory Respiratory: Present: chest non-tender - Cardiovascular Cardiovascular: Present: regular rate Extremities: Present: no peripheral edema bilatateraly - Gastrointestinal Gastrointestinal: Present: normoactive bowel sounds - Integumentary Integumentary: Present: normal - Neurologic Cranial nerve examination: facial droop Detailed motor examination: other (left upper is 3/5, left lower 4-/5 ,with decrease sensation on left side ) Results - Laboratory Findings CBC and BMP: 04/16/20 22:07 04/17/20 04:11 Abnormal Lab Findings: Abnormal Labs 04/16/20 04/16/20 04/16/20 22:07 22:07 22:37 RBC 3.46 L Hgb 8.9 L Hct 27.0 L MCV 78 L MCH 26 L RDW 17.0 H [place] % (Auto) 11.8 H [place] # 1.2 H Sodium 136 L Chloride Glucose 236 H POC Glucose 238 H Albumin 3.4 L Ur Specific [place] 04/17/20 04/17/20 04/17/20 01:02 04:11 07:55 RBC Hgb Hct MCV MCH RDW [place] % (Auto) [place] # Sodium 136 L Chloride 97.6 L Glucose 179 H POC Glucose 243 H Albumin Ur Specific [place] 1.039 H Assessment and Plan (1) CVA (cerebral vascular accident) -she is with left hemiparesis upper more than lower -Patient admitted and placed on daily aspirin. -MRI brain is remarkable for right cerebral subacute infarct CTA is remarkable for 70% stenosis in right ICA -Echo showed EF#45-50% with LVH -LDL is #105 (2) Hypertension/hypertensive emergency -Initial BP was 168/82 We will resume routine home medications 24hours after CVA monitor vital signs closely. (3) Right Internal carotid stenosis -CTA showed right ICA 70% setenosis -Need vascular surgery consult (4) Diabetes mellitus -We will monitor Accu-Cheks. -A1C (5) HLP -LDL#105 -Lipitor 40 (6) DVT prophylaxis Patient placed on subcutaneous Lovenox. (7) Full code status (8) PT/ST -Consider Rehabilitation will sign off
--- NOTE | 2020-04-17 10:06 | Progress Note ---
Assessment and Plan Assessment and plan: CVA (cerebral vascular accident) Patient admitted and placed on daily aspirin. Follow-up Neurology consultation pending. PT evaluation Anemia Possibly chronic. Will monitor CBC. Hypertension Continue home medications. Diabetes mellitus We will monitor Accu-Cheks and continue sliding scale insulin. DVT prophylaxis Continue subcutaneous Lovenox. Full code status History Interval history: No new issues overnight. Hospitalist Physical - Constitutional Vitals: Temp Pulse Resp BP Pulse Ox 98.1 F 98 H 18 173/101 99 04/17/20 07:35 04/17/20 07:35 04/17/20 07:35 04/17/20 07:35 04/17/20 07:35 General appearance: Present: no acute distress, well-nourished - EENT Eyes: Present: PERRL, EOM intact ENT: hearing intact, clear oral mucosa, dentition normal - Neck Neck: Present: supple, normal ROM - Respiratory Respiratory effort: normal Respiratory: bilateral: CTA - Cardiovascular Rhythm: regular Heart Sounds: Present: S1 & S2. Absent: gallop, rub - Extremities Extremities: no ischemia, No edema, Full ROM - Abdominal General gastrointestinal: soft, non-tender, non-distended, normal bowel sounds - Integumentary Integumentary: Present: clear, warm, dry - Neurologic Neurologic: CNII-XII intact, moves all extremities HEART Score - HEART Score Troponin: Troponin T < 0.010 ng/mL (0.00-0.029) 04/16/20 22:07 Results - Labs CBC & Chem 7: 04/16/20 22:07 04/17/20 04:11 Labs: Laboratory Last Values WBC 10.4 K/mm3 (4.5-11.0) 04/16/20 22:07 RBC 3.46 M/mm3 (3.65-5.03) L 04/16/20 22:07 Hgb 8.9 gm/dl (10.1-14.3) L 04/16/20 22:07 Hct 27.0 % (30.3-42.9) L 04/16/20 22:07 MCV 78 fl (79-97) L 04/16/20 22:07 MCH 26 pg (28-32) L 04/16/20 22:07 MCHC 33 % (30-34) 04/16/20 22:07 RDW 17.0 % (13.2-15.2) H 04/16/20 22:07 Plt Count 324 K/mm3 (140-440) 04/16/20 22:07 Lymph % (Auto) 30.6 % (13.4-35.0) 04/16/20 22:07 [place] % (Auto) 11.8 % (0.0-7.3) H 04/16/20 22:07 Eos % (Auto) 2.9 % (0.0-4.3) 04/16/20 22:07 Baso % (Auto) 0.6 % (0.0-1.8) 04/16/20 22:07 Lymph # 3.2 K/mm3 (1.2-5.4) 04/16/20 22:07 [place] # 1.2 K/mm3 (0.0-0.8) H 04/16/20 22:07 Eos # 0.3 K/mm3 (0.0-0.4) 04/16/20 22:07 Baso # 0.1 K/mm3 (0.0-0.1) 04/16/20 22:07 Seg Neutrophils % 54.1 % (40.0-70.0) 04/16/20 22:07 Seg Neutrophils # 5.6 K/mm3 (1.8-7.7) 04/16/20 22:07 PT 13.4 Sec. (12.2-14.9) 04/17/20 04:11 INR 1.01 (0.87-1.13) 04/17/20 04:11 APTT 26.2 Sec. (24.2-36.6) 04/16/20 22:07 Thrombin Time 17.5 Sec. (15.1-19.6) 04/16/20 22:07 Sodium 136 mmol/L (137-145) L 04/17/20 04:11 Potassium 4.0 mmol/L (3.6-5.0) 04/17/20 04:11 Chloride 97.6 mmol/L (98-107) L 04/17/20 04:11 Carbon Dioxide 25 mmol/L (22-30) 04/17/20 04:11 Anion Gap 17 mmol/L 04/17/20 04:11 BUN 8 mg/dL (7-17) 04/17/20 04:11 Creatinine 0.8 mg/dL (0.6-1.2) 04/17/20 04:11 Estimated GFR > 60 ml/min 04/17/20 04:11 BUN/Creatinine Ratio 10 % 04/17/20 04:11 Glucose 179 mg/dL (65-100) H 04/17/20 04:11 POC Glucose 243 (70-105) H 04/17/20 07:55 Calcium 9.6 mg/dL (8.4-10.2) 04/17/20 04:11 Total Bilirubin < 0.20 mg/dL (0.1-1.2) 04/16/20 22:07 AST 14 units/L (5-40) 04/16/20 22:07 ALT 12 units/L (7-56) 04/16/20 22:07 Alkaline Phosphatase 47 units/L (35-129) 04/16/20 22:07 Total Creatine Kinase 67 units/L (30-135) 04/16/20 22:07 CK-MB (CK-2) < 1.0 ng/mL (0.0-4.0) 04/16/20 22:07 CK-MB (CK-2) Rel Index 1.4 (0-4) 04/16/20 22:07 Troponin T < 0.010 ng/mL (0.00-0.029) 04/16/20 22:07 Total Protein 6.7 g/dL (6.3-8.2) 04/16/20 22:07 Albumin 3.4 g/dL (3.9-5) L 04/16/20 22:07 Albumin/Globulin Ratio 1.0 % 04/16/20 22:07 Triglycerides 134 mg/dL (2-149) 04/17/20 04:11 Cholesterol 169 mg/dL (50-199) 04/17/20 04:11 LDL Cholesterol Direct 105 mg/dL (50-130) 04/17/20 04:11 HDL Cholesterol 49 mg/dL (40-59) 04/17/20 04:11 Cholesterol/HDL Ratio 3.44 % 04/17/20 04:11 TSH 0.555 mlU/mL (0.270-4.200) 04/16/20 22:07 Urine Color Colorless (Yellow) 04/17/20 01:02 Urine Turbidity Clear (Clear) 04/17/20 01:02 Urine pH 7.0 (5.0-7.0) 04/17/20 01:02 Ur Specific [place] 1.039 (1.003-1.030) H 04/17/20 01:02 Urine Protein <15 mg/dl mg/dL (Negative) 04/17/20 01:02 Urine Glucose (UA) Neg mg/dL (Negative) 04/17/20 01:02 Urine Ketones Neg mg/dL (Negative) 04/17/20 01:02 Urine Blood Neg (Negative) 04/17/20 01:02 Urine Nitrite Neg (Negative) 04/17/20 01:02 Urine Bilirubin Neg (Negative) 04/17/20 01:02 Urine Urobilinogen < 2.0 mg/dL (<2.0) 04/17/20 01:02 Ur Leukocyte Esterase Neg (Negative) 04/17/20 01:02 Urine WBC (Auto) < 1.0 /HPF (0.0-6.0) 04/17/20 01:02 Urine RBC (Auto) < 1.0 /HPF (0.0-6.0) 04/17/20 01:02 U Epithel Cells (Auto) 1.0 /HPF (0-13.0) 04/17/20 01:02 Urine Opiates Screen Presumptive negative 04/17/20 01:02 Urine Methadone Screen Presumptive negative 04/17/20 01:02 Ur Barbiturates Screen Presumptive negative 04/17/20 01:02 Ur Phencyclidine Scrn Presumptive negative 04/17/20 01:02 Ur Amphetamines Screen Presumptive negative 04/17/20 01:02 U Benzodiazepines Scrn Presumptive negative 04/17/20 01:02 Urine Cocaine Screen Presumptive negative 04/17/20 01:02 U Marijuana (THC) Screen Presumptive negative 04/17/20 01:02 Drugs of Abuse Note Disclamer 04/17/20 01:02 [place]/IV: Voiding Method External Female Catheter IV Catheter Type [Right Peripheral IV Antecubital] Active Medications - Current Medications Current Medications: Generic Name Dose Route Start Last Admin Trade Name Freq PRN Reason Stop Dose Admin Acetaminophen 650 mg 04/16/20 23:22 Tylenol PO Q4H PRN Pain MILD(1-3)/Fever >100.5/WEISS Amlodipine Besylate 5 mg 04/17/20 10:00 Amlodipine PO DAILY [facility] Aspirin 325 mg 04/17/20 10:00 Aspirin PO QDAY [facility] Atorvastatin Calcium 40 mg 04/17/20 22:00 Lipitor PO QHS [facility] Bisacodyl 10 mg 04/16/20 23:22 Dulcolax ND QDAY PRN Constipation Dextrose 50 ml 04/17/20 06:35 D50w (25gm) Syringe IV Q30MIN PRN Hypoglycemia Protocol Enoxaparin Sodium 40 mg 04/17/20 22:00 Enoxaparin SUB-Q QDAY@2200 [facility] Protocol Insulin Human Lispro 0 unit 04/17/20 07:30 Humalog SUB-Q ACHS [facility] Protocol Lisinopril 10 mg 04/17/20 10:00 Zestril PO QDAY [facility] Magnesium Hydroxide 30 ml 04/16/20 23:22 Milk Of Magnesia PO Q4H PRN Constipation Metoclopramide HCl 10 mg 04/16/20 23:22 Reglan PO Q6H PRN Nausea And Vomiting Ondansetron HCl 4 mg 04/16/20 23:22 Zofran IV Q8H PRN Nausea And Vomiting Promethazine HCl 25 mg 04/16/20 23:22 Phenergan ND Q6H PRN Nausea And Vomiting Sodium Chloride 10 ml 04/17/20 10:00 Sodium Chloride Flush Syringe 10 Ml IV BID [facility] Sodium Chloride 10 ml 04/16/20 23:22 Sodium Chloride Flush Syringe 10 Ml IV PRN PRN LINE FLUSH
--- NOTE | 2020-04-17 10:11 | Magnetic Resonance Report ---
NONENHANCED MR SCAN OF THE BRAIN: INDICATION / CLINICAL INFORMATION: Left-sided weakness TECHNIQUE: Multiplanar, multisequence MR images of the brain obtained. COMPARISON: CT scan of the head FINDINGS: BRAIN / INTRACRANIAL CONTENTS: Abnormal MRI scan Subacute infarction seen in the "hand Center" of right precentral gyrus: External right frontal borde r zone, internal and external right posterior parietal border zone; these infarctions are more than 1 2 hours old (increased T2 signal intensity) but less than 3 days old (low ADC values). In the gradien t echo images, no evidence of hemorrhagic changes. Lateral ventricles are quite generous, disproportionate to high convexity cortical sulci. Temporal ho rns are not dilated in par with the rest of the lateral ventricles. However, there is crowding of par asagittal cortical sulci. MR findings more in favor of deep central involution. Extra cerebellar CSF space is prominent laterally bilaterally suggesting mild involution of the cereb ral lump. CRANIOCERVICAL JUNCTION: No significant abnormality. VASCULAR FLOW-VOIDS: No significant abnormality. ORBITS: No significant abnormality of visualized orbits. SINUSES / MASTOIDS: Mucosal thickening in the right posterior ethmoid air cell ADDITIONAL FINDINGS: None. IMPRESSION: Focal areas of subacute ischemia right cerebral hemisphere Signer Name: Candy Roa MD Signed: 04/17/2020 10:06 AM Workstation Name: [email or web address]
[2020-04-17] MEDS: INSULIN LISPRO 100 UNIT/ML VIAL 3 mL SUB-Q SCH ×4 (10:55→21:32)
[2020-04-17] MEDS: amLODIPine 5 MG TAB PO SCH (12:59)
[2020-04-17] MEDS: LISINOPRIL 10 MG TAB PO SCH (13:00)
[2020-04-17] MEDS: ASPIRIN 325 MG TAB PO SCH (13:02)
--- NOTE | 2020-04-17 15:01 | Vascular Lab Report ---
"DUPLEX DOPPLER ULTRASOUND CAROTID, BILATERAL INDICATION: stroke. FINDINGS: RIGHT CAROTID: Moderate plaque Right CCA velocity: 78 cm/sec. Right ICA peak systolic velocity: 222 cm/sec. ICA/CCA PSV Ratio: 3. Right Vertebral Artery: Antegrade flow. LEFT CAROTID: Mild plaque Left CCA velocity: 75 cm/sec. Left ICA peak systolic velocity: 85 cm/sec. ICA/CCA PSV Ratio: 1.1. Left Vertebral Artery: Antegrade flow. IMPRESSION: 1. Right Internal Carotid Artery: 50-69% diameter stenosis. 2. Left Internal Carotid Artery: Less than 50% diameter stenosis. Velocity criteria are extrapolated from diameter data as defined by the Society of Radiologists in Ul trasound Consensus Conference, Radiology 2003; 229;340-346. Degree of Stenosis (%) || ICA PSV (cm/sec) || Plaque estimate (%) || ICA/CCA PSV Ratio Normal <125 None <2.0 <50 <125 <50 <2.0 50-69 125-230 50 2.0-4.0 70 but less than 100 >230 50 >4.0 Near occlusion High, low, or none visible variable Total occlusion None visible; no lumen N/A Signer Name: Pedro Luis Wang MD Signed: 04/17/2020 2:56 PM Workstation Name: [id number]
[2020-04-17] MEDS: ENOXAPARIN 40 MG/0.4 ML INJ SUB-Q SCH (21:33)
[2020-04-17] MEDS ORDERED: ALPRAZolam 0.25 MG TAB PO PRN (23:25)
[2020-04-18] MEDS: INSULIN LISPRO 100 UNIT/ML VIAL 3 mL SUB-Q SCH ×4 (08:43→22:31)
--- NOTE | 2020-04-18 09:12 | Progress Note ---
Assessment and Plan Assessment and plan: CVA (cerebral vascular accident) Patient admitted and placed on daily aspirin. Follow-up Neurology consultation. PT evaluation Anemia Possibly chronic. Will monitor CBC. Hypertension Continue home medications. Diabetes mellitus We will monitor Accu-Cheks and continue sliding scale insulin. DVT prophylaxis Continue subcutaneous Lovenox. Full code status 04/18/2020. MRI brain is remarkable for right cerebral subacute infarct. CTA is remarkable for 70% stenosis in the right ICA. Echo revealed EF of 45 to 50% with LVH. Vascular surgery consultation. Await physical therapy recommendations for possible rehab placement. Continue aspirin and Lipitor. History Interval history: No new issues overnight. Hospitalist Physical - Constitutional Vitals: Temp Pulse Resp BP Pulse Ox 98.2 F 85 18 137/74 97 04/18/20 07:25 04/18/20 07:25 04/18/20 07:25 04/18/20 07:25 04/18/20 07:25 General appearance: Present: no acute distress, well-nourished - EENT Eyes: Present: PERRL, EOM intact ENT: hearing intact, clear oral mucosa, dentition normal - Neck Neck: Present: supple, normal ROM - Respiratory Respiratory effort: normal Respiratory: bilateral: CTA - Cardiovascular Rhythm: regular Heart Sounds: Present: S1 & S2. Absent: gallop, rub - Extremities Extremities: no ischemia, No edema, Full ROM - Abdominal General gastrointestinal: soft, non-tender, non-distended, normal bowel sounds - Integumentary Integumentary: Present: clear, warm, dry - Neurologic Neurologic: CNII-XII intact, moves all extremities HEART Score - HEART Score Troponin: Troponin T < 0.010 ng/mL (0.00-0.029) 04/16/20 22:07 Results - Labs CBC & Chem 7: 04/16/20 22:07 04/17/20 04:11 Labs: Laboratory Last Values WBC 10.4 K/mm3 (4.5-11.0) 04/16/20 22:07 RBC 3.46 M/mm3 (3.65-5.03) L 04/16/20 22:07 Hgb 8.9 gm/dl (10.1-14.3) L 04/16/20 22:07 Hct 27.0 % (30.3-42.9) L 04/16/20 22:07 MCV 78 fl (79-97) L 04/16/20 22:07 MCH 26 pg (28-32) L 04/16/20 22:07 MCHC 33 % (30-34) 04/16/20 22:07 RDW 17.0 % (13.2-15.2) H 04/16/20 22:07 Plt Count 324 K/mm3 (140-440) 04/16/20 22:07 Lymph % (Auto) 30.6 % (13.4-35.0) 04/16/20 22:07 [place] % (Auto) 11.8 % (0.0-7.3) H 04/16/20 22:07 Eos % (Auto) 2.9 % (0.0-4.3) 04/16/20 22:07 Baso % (Auto) 0.6 % (0.0-1.8) 04/16/20 22:07 Lymph # 3.2 K/mm3 (1.2-5.4) 04/16/20 22:07 [place] # 1.2 K/mm3 (0.0-0.8) H 04/16/20 22:07 Eos # 0.3 K/mm3 (0.0-0.4) 04/16/20 22:07 Baso # 0.1 K/mm3 (0.0-0.1) 04/16/20 22:07 Seg Neutrophils % 54.1 % (40.0-70.0) 04/16/20 22:07 Seg Neutrophils # 5.6 K/mm3 (1.8-7.7) 04/16/20 22:07 PT 13.4 Sec. (12.2-14.9) 04/17/20 04:11 INR 1.01 (0.87-1.13) 04/17/20 04:11 APTT 26.2 Sec. (24.2-36.6) 04/16/20 22:07 Thrombin Time 17.5 Sec. (15.1-19.6) 04/16/20 22:07 Sodium 136 mmol/L (137-145) L 04/17/20 04:11 Potassium 4.0 mmol/L (3.6-5.0) 04/17/20 04:11 Chloride 97.6 mmol/L (98-107) L 04/17/20 04:11 Carbon Dioxide 25 mmol/L (22-30) 04/17/20 04:11 Anion Gap 17 mmol/L 04/17/20 04:11 BUN 8 mg/dL (7-17) 04/17/20 04:11 Creatinine 0.8 mg/dL (0.6-1.2) 04/17/20 04:11 Estimated GFR > 60 ml/min 04/17/20 04:11 BUN/Creatinine Ratio 10 % 04/17/20 04:11 Glucose 179 mg/dL (65-100) H 04/17/20 04:11 POC Glucose 211 (70-105) H 04/18/20 07:45 Calcium 9.6 mg/dL (8.4-10.2) 04/17/20 04:11 Total Bilirubin < 0.20 mg/dL (0.1-1.2) 04/16/20 22:07 AST 14 units/L (5-40) 04/16/20 22:07 ALT 12 units/L (7-56) 04/16/20 22:07 Alkaline Phosphatase 47 units/L (35-129) 04/16/20 22:07 Total Creatine Kinase 67 units/L (30-135) 04/16/20 22:07 CK-MB (CK-2) < 1.0 ng/mL (0.0-4.0) 04/16/20 22:07 CK-MB (CK-2) Rel Index 1.4 (0-4) 04/16/20 22:07 Troponin T < 0.010 ng/mL (0.00-0.029) 04/16/20 22:07 Total Protein 6.7 g/dL (6.3-8.2) 04/16/20 22:07 Albumin 3.4 g/dL (3.9-5) L 04/16/20 22:07 Albumin/Globulin Ratio 1.0 % 04/16/20 22:07 Triglycerides 134 mg/dL (2-149) 04/17/20 04:11 Cholesterol 169 mg/dL (50-199) 04/17/20 04:11 LDL Cholesterol Direct 105 mg/dL (50-130) 04/17/20 04:11 HDL Cholesterol 49 mg/dL (40-59) 04/17/20 04:11 Cholesterol/HDL Ratio 3.44 % 04/17/20 04:11 TSH 0.555 mlU/mL (0.270-4.200) 04/16/20 22:07 Urine Color Colorless (Yellow) 04/17/20 01:02 Urine Turbidity Clear (Clear) 04/17/20 01:02 Urine pH 7.0 (5.0-7.0) 04/17/20 01:02 Ur Specific [place] 1.039 (1.003-1.030) H 04/17/20 01:02 Urine Protein <15 mg/dl mg/dL (Negative) 04/17/20 01:02 Urine Glucose (UA) Neg mg/dL (Negative) 04/17/20 01:02 Urine Ketones Neg mg/dL (Negative) 04/17/20 01:02 Urine Blood Neg (Negative) 04/17/20 01:02 Urine Nitrite Neg (Negative) 04/17/20 01:02 Urine Bilirubin Neg (Negative) 04/17/20 01:02 Urine Urobilinogen < 2.0 mg/dL (<2.0) 04/17/20 01:02 Ur Leukocyte Esterase Neg (Negative) 04/17/20 01:02 Urine WBC (Auto) < 1.0 /HPF (0.0-6.0) 04/17/20 01:02 Urine RBC (Auto) < 1.0 /HPF (0.0-6.0) 04/17/20 01:02 U Epithel Cells (Auto) 1.0 /HPF (0-13.0) 04/17/20 01:02 Urine Opiates Screen Presumptive negative 04/17/20 01:02 Urine Methadone Screen Presumptive negative 04/17/20 01:02 Ur Barbiturates Screen Presumptive negative 04/17/20 01:02 Ur Phencyclidine Scrn Presumptive negative 04/17/20 01:02 Ur Amphetamines Screen Presumptive negative 04/17/20 01:02 U Benzodiazepines Scrn Presumptive negative 04/17/20 01:02 Urine Cocaine Screen Presumptive negative 04/17/20 01:02 U Marijuana (THC) Screen Presumptive negative 04/17/20 01:02 Drugs of Abuse Note Disclamer 04/17/20 01:02 - Diagnostic Impressions Diagnostic Impressions: Echocardiogram 04/16/20 23:27 Transthoracic Echocardiogram Indication: Stroke BP: 173/101 HR: 84 Conclusions *Global left ventricular systolic function is at the lower limits of normal. *The estimated ejection fraction is 45-50%. *Mild to moderate concentric left ventricular hypertrophy is observed. *There is mild mitral regurgitation. *There is trace tricuspid regurgitation. *A patent foramen ovale is not demonstrated by agitated saline contrast. Findings Procedure Info: The study was technically limited due to the patient's inability to lay in the left lateral decubitus position. Left Ventricle: The left ventricular chamber size is normal. Mild to moderate concentric left ventricular hypertrophy is observed. Global left ventricular systolic function is at the lower limits of normal. The estimated ejection fraction is 45-50%. Left Atrium: The left atrial chamber size is normal. Right Ventricle: The right ventricular cavity size is normal. The right ventricular global systolic function is normal. Right Atrium: The right atrial cavity size is normal. A patent foramen ovale is not demonstrated by agitated saline contrast. Aortic Valve: The aortic valve leaflets are mildly thickened. There is no evidence of aortic regurgitation. There is no evidence of aortic stenosis. Mitral Valve: The mitral valve leaflets are mildly thickened. There is mild mitral regurgitation. There is no evidence of mitral stenosis. Tricuspid Valve: There is trace tricuspid regurgitation. No pulmonary hypertension is noted. Pulmonic Valve: There is trace pulmonic regurgitation. Pericardium: There is no pericardial effusion. Aorta: There is no dilatation of the ascending aorta. There is no dilatation of the aortic root. Venous: The inferior vena cava appears normal in size. Contrast: Intravenous agitated saline contrast was used to assess intracardiac shunting. Measurements Chambers 2D Name Value Normal Range IVSd (2D) 1.04 cm (0.6 - 1.1) LVPWd (2D) 1.03 cm (0.6 - 1.1) LVIDd (2D) 3.92 cm (3.7 - 5.6) LVIDs (2D) 2.66 cm (2 - 3.8) LV FS (2D) 32 % - EF Teichholz (2D) 60.78 % - Ao root diameter (2D) 2.57 cm (2 - 3.7) Volumes/Mass Name Value Normal Range LA ESV SP 4CH (A/L) 32.23 ml - LA ESV SP 2CH (A/L) 47.13 ml - LA ESV BP (A/L) 39.07 ml - LA ESV BP (A/L) index 19.93 ml/m2 - LA ESV SP 4CH (MOD) 31.7 ml - LA ESV SP 2CH (MOD) 42.58 ml - LA ESV BP (MOD) 36.67 ml - LA ESV BP (MOD) index 18.71 ml/m2 - LV EDV SP 4CH (MOD) 152.66 ml - LV ESV SP 4CH (MOD) 53.76 ml - EF SP 4CH (MOD) 64.79 % - LV EDV SP 2CH (MOD) 136.5 ml - LV ESV SP 2CH (MOD) 56.83 ml - EF SP 2CH (MOD) 58.37 % - LV EDV BP 145.57 ml - LV ESV BP 56.08 ml - BP EF (MOD) 61.48 % - Diastolic/Systolic Function Name Value Normal Range MV E-wave Vmax 0.73 m/sec - MV deceleration time 183.97 msec - MV A-wave Vmax 0.96 m/sec - MV E:A ratio 0.75 ratio - Aortic Valve Name Value Normal Range AV Vmax 1.13 m/sec - AV VTI 21.75 cm - AV peak gradient 5.13 mmHg - AV mean gradient 2.76 mmHg - LVOT diameter 2.3 cm - LVOT Vmax 0.73 m/sec - LVOT VTI 15.74 cm - LVOT peak gradient 2.15 mmHg - LVOT mean gradient 1.07 mmHg - SV LVOT 65.4 ml - SAMANTHA (continuity Vmax) 2.69 cm2 - SAMANTHA (continuity VTI) 3.01 cm2 - Ascending Ao 2.81 cm - Tricuspid Valve Name Value Normal Range IVC diameter 1.62 cm (1.2 - 2.3) Pulmonic Valve/Qp:Qs Name Value Normal Range PV Vmax 0.8 m/sec - PV VTI 14.94 cm - PV peak gradient 2.55 mmHg - PV mean gradient 1.35 mmHg - RVOT Vmax 0.64 m/sec - RVOT VTI 12.48 cm - RVOT peak gradient 1.61 mmHg - [place]/IV: Voiding Method External Female Catheter IV Catheter Type [Right Peripheral IV Antecubital] Active Medications - Current Medications Current Medications: Generic Name Dose Route Start Last Admin Trade Name Freq PRN Reason Stop Dose Admin Acetaminophen 650 mg 04/16/20 23:22 Tylenol PO Q4H PRN Pain MILD(1-3)/Fever >100.5/WEISS Alprazolam 0.25 mg 04/17/20 23:25 04/17/20 23:38 Xanax PO 0.25 mg Q8H PRN Administration Anxiety Amlodipine Besylate 5 mg 04/17/20 10:00 04/17/20 12:59 Amlodipine PO 5 mg DAILY JIMBO Administration Aspirin 325 mg 04/17/20 10:00 04/17/20 13:02 Aspirin PO 325 mg QDAY JIMBO Administration Atorvastatin Calcium 40 mg 04/17/20 22:00 04/17/20 21:34 Lipitor PO 40 mg QHS JIMBO Administration Bisacodyl 10 mg 04/16/20 23:22 Dulcolax MS QDAY PRN Constipation Dextrose 50 ml 04/17/20 06:35 D50w (25gm) Syringe IV Q30MIN PRN Hypoglycemia Protocol Enoxaparin Sodium 40 mg 04/17/20 22:00 04/17/20 21:33 Enoxaparin SUB-Q 40 mg QDAY@2200 JIMBO Administration Protocol Insulin Human Lispro 0 unit 04/17/20 07:30 04/18/20 08:43 Humalog SUB-Q 3 unit ACHS JIMBO Administration Protocol Labetalol HCl 10 mg 04/18/20 04:18 04/18/20 04:42 Labetalol IV 10 mg Q6HR PRN Administration Increased Blood Pressure Lisinopril 10 mg 04/17/20 10:00 04/17/20 13:00 Zestril PO 10 mg QDAY JIMBO Administration Magnesium Hydroxide 30 ml 04/16/20 23:22 Milk Of Magnesia PO Q4H PRN Constipation Metoclopramide HCl 10 mg 04/16/20 23:22 Reglan PO Q6H PRN Nausea And Vomiting Ondansetron HCl 4 mg 04/16/20 23:22 Zofran IV Q8H PRN Nausea And Vomiting Promethazine HCl 25 mg 04/16/20 23:22 Phenergan MS Q6H PRN Nausea And Vomiting Sodium Chloride 10 ml 04/17/20 10:00 04/17/20 21:33 Sodium Chloride Flush Syringe 10 Ml IV 10 ml BID JIMBO Administration Sodium Chloride 10 ml 04/16/20 23:22 Sodium Chloride Flush Syringe 10 Ml IV PRN PRN LINE FLUSH Nutrition/Malnutrition Assess - Dietary Evaluation Nutrition/Malnutrition Findings: Nutrition Notes Start: 04/17/20 14:16 Freq: Status: Active Protocol: Document 04/17/20 14:16 AL (Rec: 04/17/20 14:27 AL [id number]) Co-Sign 04/17/20 14:16 NHALL Nutrition Notes Need for Assessment generated from: MD Order,Education Initial or Follow up Brief Note Current Diagnosis Stroke Current Diet Cardiac Diet Height 5 ft 8 in [place] Body Weight (kg) 63.63 Weight Status Overweight Subjective/Other Information RD consulted for nutrition recommendations and diet education. Pt. takes BP and BG medications at home. Pt is familiar with food sources of CHO. Pt. has been diabetic for 15 years and reports family history of high blood pressure and diabetes. Denies need for diet education but does verbalized food preference. Pt . is eager to get physically activ by purchasing a recumbent bicycle. Burn Absent Trauma Absent GI Symptoms None Minimum of two criteria No #1 Nutrition Diagnosis Food and nutrition-related knowledge deficit Nutrition Intervention Revisit per MD consult or patient Sign Off request:
[2020-04-18] MEDS: amLODIPine 5 MG TAB PO SCH (09:55)
[2020-04-18] MEDS: ASPIRIN 325 MG TAB PO SCH (09:55)
[2020-04-18] MEDS: LISINOPRIL 10 MG TAB PO SCH (09:56)
[2020-04-18] MEDS: ENOXAPARIN 40 MG/0.4 ML INJ SUB-Q SCH (22:30)
[2020-04-19] MEDS ORDERED: MORPHINE 2 MG/1 ML INJ IV ONE (01:42)
--- NOTE | 2020-04-19 08:41 | Consultation ---
History of Present Illness - Reason for Consult Consult date: 04/19/20 Stroke with Right Internal Carotid Artery Stenosis Requesting physician: TRISH DRAPER - History of Present Illness The patient is a 64-year-old female who presented to the emergency department on Thursday after she states she was initially talking on the phone with her daughter and going to initiate a conversation with another family member however when she reached for her phone she noticed numbness and tingling of her mouth and then noticed that she was unable to move her left side. She also noticed that she was experiencing slurred speech. She called out for her who noted the same symptoms and transported to the emergency department. Upon arrival to the emergency department she was noted to have left-sided weakness and had a work-up for stroke which revealed focal areas of subacute ischemia in the right cerebral hemisphere. Her carotid duplex and CTA of the neck revealed approximately 70% stenosis of the right internal carotid artery. She relates a history of TIA a pproximately 15 years ago however she states the symptom was seeing halos which is not consistent with a TIA. She denied any localized numbness or weakness. Prior to this episode she did have 4 to 5 days of nausea and vomiting but denies any other complaints. Past History Past Medical History: hypertension Past Surgical History: No surgical history Social history: no significant social history Family history: no significant family history Medications and Allergies Allergies Allergy/AdvReac Type Severity Reaction Status Date / Time amoxicillin [From Augmentin] Allergy Hives Verified 04/16/20 23:00 clavulanic acid Allergy Hives Verified 04/16/20 23:00 [From Augmentin] Home Medications Medication Instructions Recorded Confirmed Last Taken Type Amlodipine Besylate [Norvasc] 5 mg PO DAILY 04/17/20 04/17/20 Unknown History Aspirin 325 mg PO ONCE 04/17/20 04/17/20 Unknown History Insulin NPH Human Isophane 22 unit SQ BID 04/17/20 04/17/20 Unknown History [Novolin N] Metformin HCl [metFORMIN] 1,000 mg PO BID 04/17/20 04/17/20 Unknown History lisinopriL [Zestril TAB] 10 mg PO QDAY 04/17/20 04/17/20 Unknown History Active Meds: Active Medications Acetaminophen (Tylenol) 650 mg PO Q4H PRN PRN Reason: Pain MILD(1-3)/Fever >100.5/WEISS Last Admin: 04/19/20 00:23 Dose: 650 mg Documented by: Alprazolam (Xanax) 0.25 mg PO Q8H PRN PRN Reason: Anxiety Last Admin: 04/17/20 23:38 Dose: 0.25 mg Documented by: Amlodipine Besylate (Amlodipine) 5 mg PO DAILY [facility] Last Admin: 04/18/20 09:55 Dose: 5 mg Documented by: Aspirin (Aspirin) 325 mg PO QDAY [facility] Last Admin: 04/18/20 09:55 Dose: 325 mg Documented by: Atorvastatin Calcium (Lipitor) 40 mg PO QHS [facility] Last Admin: 04/18/20 22:31 Dose: 40 mg Documented by: Bisacodyl (Dulcolax) 10 mg [place] QDAY PRN PRN Reason: Constipation Dextrose (D50w (25gm) Syringe) 50 ml IV Q30MIN PRN; Protocol PRN Reason: Hypoglycemia Enoxaparin Sodium (Enoxaparin) 40 mg SUB-Q QDAY@2200 [facility]; Protocol Last Admin: 04/18/20 22:30 Dose: 40 mg Documented by: Insulin Human Lispro (Humalog) 0 unit SUB-Q [facility]; Protocol Last Admin: 04/18/20 22:31 Dose: 8 unit Documented by: Labetalol HCl (Labetalol) 10 mg IV Q6HR PRN PRN Reason: Increased Blood Pressure Last Admin: 04/18/20 04:42 Dose: 10 mg Documented by: Lisinopril (Zestril) 10 mg PO QDAY [facility] Last Admin: 04/18/20 09:56 Dose: 10 mg Documented by: Magnesium Hydroxide (Milk Of Magnesia) 30 ml PO Q4H PRN PRN Reason: Constipation Metoclopramide HCl (Reglan) 10 mg PO Q6H PRN PRN Reason: Nausea And Vomiting Ondansetron HCl (Zofran) 4 mg IV Q8H PRN PRN Reason: Nausea And Vomiting Promethazine HCl (Phenergan) 25 mg [place] Q6H PRN PRN Reason: Nausea And Vomiting Sodium Chloride (Sodium Chloride Flush Syringe 10 Ml) 10 ml IV BID [facility] Last Admin: 04/18/20 22:31 Dose: 10 ml Documented by: Sodium Chloride (Sodium Chloride Flush Syringe 10 Ml) 10 ml IV PRN PRN PRN Reason: LINE FLUSH Review of Systems All systems: negative Exam - Constitutional Vitals: Temp Pulse Resp BP Pulse Ox 98.2 F 90 18 149/80 99 04/19/20 04:07 04/19/20 04:07 04/19/20 04:07 04/19/20 04:07 04/19/20 04:07 General appearance: Present: no acute distress - Neck Neck: Present: supple - Respiratory Respiratory effort: normal - Cardiovascular Rhythm: regular - Extremities Extremities: pulses intact - Abdominal General gastrointestinal: Present: soft, non-tender, non-distended - Rectal Rectal Exam: deferred - Musculoskeletal Musculoskeletal: left sided weakness - Psychiatric Psychiatric: appropriate mood/affect, intact judgment & insight Results - Labs CBC & Chem 7: 04/16/20 22:07 04/17/20 04:11 Labs: Abnormal lab results 04/18/20 04/18/20 04/18/20 Range/Units 12:10 17:05 21:46 POC Glucose 275 H 295 H 319 H (70-105) 04/19/20 04/19/20 Range/Units 00:31 08:13 POC Glucose 223 H 197 H (70-105) - Imaging and Cardiology CT Scan - head: image reviewed (CTA Neck and Carotid Duplex images were reviewed) MRI - head: image reviewed Assessment and Plan The patient is a 64-year-old female who presented with an acute CVA resulting in left-sided weakness. The patient stated that she occasionally took an aspirin 325 mg for headaches but did not take this on a regular basis. She was not on a statin. Despite being on medications for hypertension when she arrived at the hospital her systolic blood pressure Was in the 160s and 170s and she states she does not check this on a regular basis at home. Additionally her heart rate was in the low 100s and has regularly been in the 80s and 90s while in the hospital. The patient's left side is still weak however she states she is improving daily. Would recommend that she continue working with physical therapy and Occupational Therapy as an outpatient until she regains full strength or plateaus. Although she has a symptomatic lesion she was not on any medical management as well as having poorly controlled hypertension. Would recommend antiplatelet therapy with Plavix as well as statin therapy with Lipitor 40 mg p.o. daily or Crestor 20 mg p.o. daily. Additionally the patient needs better blood pressure control maintaining a systolic blood pressure less than 140 and a diastolic blood pressure less than 80 and preferably having a heart rate less than 80, would likely benefit from addition of a beta-candy. She should also have better control of her diabetes with a goal of a hemoglobin A1c less than 6. She should follow-up with me in the office in 2 weeks after discharge.
[2020-04-19] MEDS: INSULIN LISPRO 100 UNIT/ML VIAL 3 mL SUB-Q SCH ×3 (09:28→16:00)
[2020-04-19] MEDS: amLODIPine 5 MG TAB PO SCH (09:31)
[2020-04-19] MEDS: LISINOPRIL 10 MG TAB PO SCH (09:31)
[2020-04-19] MEDS: ASPIRIN 325 MG TAB PO SCH (09:32)
--- NOTE | 2020-04-19 09:53 | Progress Note ---
Assessment and Plan Given the patient's severe headache yesterday, a repeat CT of the head will be performed today. Otherwise, the patient may be discharged home from a vascular point of view. She will need to follow-up in our clinic at [facility] [place] with Dr. Carrasquillo in 2 weeks to have preoperative planning for a right carotid endarterectomy. Subjective Date of service: 04/19/20 Principal diagnosis: Right CVA with transient left-sided weakness Interval history: Patient with a history of a right CVA. She has right internal carotid artery stenosis of greater than 70%. Her strength has returned to baseline. She ambulates without assistance. Patient did complain of a severe headache yesterday which is now resolving. She describes it as migraine-like. Objective - Constitutional Vitals: Vital Signs - 12hr 04/18/20 04/19/20 04/19/20 23:40 01:43 02:00 Temperature 98.4 F Pulse Rate 94 H 85 85 Respiratory 18 20 Rate Blood Pressure 150/82 Blood Pressure 167/80 [Right] O2 Sat by Pulse 98 99 Oximetry 04/19/20 04/19/20 04:07 09:31 Temperature 98.2 F Pulse Rate 90 66 Respiratory 18 Rate Blood Pressure 149/80 132/66 Blood Pressure [Right] O2 Sat by Pulse 99 Oximetry General appearance: Present: no acute distress - EENT Eyes: EOM intact ENT: hearing intact - Neck Neck: supple, normal ROM - Respiratory Respiratory effort: normal - Breasts Breasts: deferred - Gastrointestinal General gastrointestinal: Present: deferred Rectal Exam: deferred - Genitourinary Female genitourinary: deferred - Musculoskeletal Musculoskeletal: strength equal bilaterally - Psychiatric Psychiatric: appropriate mood/affect, cooperative - Labs CBC & Chem 7: 04/16/20 22:07 04/17/20 04:11 Labs: Abnormal lab results 04/18/20 04/18/20 04/18/20 Range/Units 12:10 17:05 21:46 POC Glucose 275 H 295 H 319 H (70-105) 04/19/20 04/19/20 Range/Units 00:31 08:13 POC Glucose 223 H 197 H (70-105) Medications & Allergies - Medications Allergies/Adverse Reactions: Allergies amoxicillin [From Augmentin] Allergy (Verified 04/16/20 23:00) Hives clavulanic acid [From Augmentin] Allergy (Verified 04/16/20 23:00) Hives Home Medications: Home Medications Medication Instructions Recorded Confirmed Last Taken Type Amlodipine Besylate [Norvasc] 5 mg PO DAILY 04/17/20 04/17/20 Unknown History Aspirin 325 mg PO ONCE 04/17/20 04/17/20 Unknown History Insulin NPH Human Isophane 22 unit SQ BID 04/17/20 04/17/20 Unknown History [Novolin N] Metformin HCl [metFORMIN] 1,000 mg PO BID 04/17/20 04/17/20 Unknown History lisinopriL [Zestril TAB] 10 mg PO QDAY 04/17/20 04/17/20 Unknown History Active Medications: Generic Name Dose Route Start Last Admin Trade Name Freq PRN Reason Stop Dose Admin Acetaminophen 650 mg 04/16/20 23:22 04/19/20 00:23 Tylenol PO 650 mg Q4H PRN Administration Pain MILD(1-3)/Fever >100.5/WEISS Alprazolam 0.25 mg 04/17/20 23:25 04/17/20 23:38 Xanax PO 0.25 mg Q8H PRN Administration Anxiety Amlodipine Besylate 5 mg 04/17/20 10:00 04/19/20 09:31 Amlodipine PO 5 mg DAILY JIMBO Administration Aspirin 325 mg 04/17/20 10:00 04/19/20 09:32 Aspirin PO 325 mg QDAY JIMBO Administration Atorvastatin Calcium 40 mg 04/17/20 22:00 04/18/20 22:31 Lipitor PO 40 mg QHS JIMBO Administration Bisacodyl 10 mg 04/16/20 23:22 Dulcolax [place] QDAY PRN Constipation Dextrose 50 ml 04/17/20 06:35 D50w (25gm) Syringe IV Q30MIN PRN Hypoglycemia Protocol Enoxaparin Sodium 40 mg 04/17/20 22:00 04/18/20 22:30 Enoxaparin SUB-Q 40 mg QDAY@2200 JIMBO Administration Protocol Insulin Human Lispro 0 unit 04/17/20 07:30 04/19/20 09:28 Humalog SUB-Q 2 unit ACHS JIMBO Administration Protocol Labetalol HCl 10 mg 04/18/20 04:18 04/18/20 04:42 Labetalol IV 10 mg Q6HR PRN Administration Increased Blood Pressure Lisinopril 10 mg 04/17/20 10:00 04/19/20 09:31 Zestril PO 10 mg QDAY JIMBO Administration Magnesium Hydroxide 30 ml 04/16/20 23:22 Milk Of Magnesia PO Q4H PRN Constipation Metoclopramide HCl 10 mg 04/16/20 23:22 Reglan PO Q6H PRN Nausea And Vomiting Ondansetron HCl 4 mg 04/16/20 23:22 Zofran IV Q8H PRN Nausea And Vomiting Promethazine HCl 25 mg 04/16/20 23:22 Phenergan [place] Q6H PRN Nausea And Vomiting Sodium Chloride 10 ml 04/17/20 10:00 04/19/20 09:32 Sodium Chloride Flush Syringe 10 Ml IV 10 ml BID JIMBO Administration Sodium Chloride 10 ml 04/16/20 23:22 Sodium Chloride Flush Syringe 10 Ml IV PRN PRN LINE FLUSH HEART Score - HEART Score Troponin: Troponin T < 0.010 ng/mL (0.00-0.029) 04/16/20 22:07
--- NOTE | 2020-04-19 10:02 | Progress Note ---
Assessment and Plan Assessment and plan: CVA (cerebral vascular accident) Patient admitted and placed on daily aspirin. Follow-up Neurology consultation. PT evaluation Anemia Possibly chronic. Will monitor CBC. Hypertension Continue home medications. Diabetes mellitus We will monitor Accu-Cheks and continue sliding scale insulin. DVT prophylaxis Continue subcutaneous Lovenox. Full code status 04/18/2020. MRI brain is remarkable for right cerebral subacute infarct. CTA is remarkable for 70% stenosis in the right ICA. Echo revealed EF of 45 to 50% with LVH. Vascular surgery consultation. Await physical therapy recommendations for possible rehab placement. Continue aspirin and Lipitor. 04/19/2020. Vascular surgery recommends starting Plavix and continuing Lipitor. Blood pressure well controlled with current regimen. Await physical therapy evaluation for discharge planning. Patient is to follow-up with vascular surgery in 2 weeks. History Interval history: No new issues overnight. Hospitalist Physical - Constitutional Vitals: Temp Pulse Resp BP Pulse Ox 98.2 F 66 18 132/66 99 04/19/20 04:07 04/19/20 09:31 04/19/20 04:07 04/19/20 09:31 04/19/20 04:07 General appearance: Present: no acute distress - EENT Eyes: Present: PERRL, EOM intact ENT: hearing intact, clear oral mucosa, dentition normal - Neck Neck: Present: supple, normal ROM - Respiratory Respiratory effort: normal Respiratory: bilateral: CTA - Cardiovascular Rhythm: regular Heart Sounds: Present: S1 & S2. Absent: gallop, rub - Extremities Extremities: no ischemia, No edema, Full ROM - Abdominal General gastrointestinal: soft, non-tender, non-distended, normal bowel sounds - Integumentary Integumentary: Present: clear, warm, dry - Neurologic Neurologic: CNII-XII intact, moves all extremities HEART Score - HEART Score Troponin: Troponin T < 0.010 ng/mL (0.00-0.029) 04/16/20 22:07 Results - Labs CBC & Chem 7: 04/16/20 22:07 04/17/20 04:11 Labs: Laboratory Last Values WBC 10.4 K/mm3 (4.5-11.0) 04/16/20 22:07 RBC 3.46 M/mm3 (3.65-5.03) L 04/16/20 22:07 Hgb 8.9 gm/dl (10.1-14.3) L 04/16/20 22:07 Hct 27.0 % (30.3-42.9) L 04/16/20 22:07 MCV 78 fl (79-97) L 04/16/20 22:07 MCH 26 pg (28-32) L 04/16/20 22:07 MCHC 33 % (30-34) 04/16/20 22:07 RDW 17.0 % (13.2-15.2) H 04/16/20 22:07 Plt Count 324 K/mm3 (140-440) 04/16/20 22:07 Lymph % (Auto) 30.6 % (13.4-35.0) 04/16/20 22:07 Cherry % (Auto) 11.8 % (0.0-7.3) H 04/16/20 22:07 Eos % (Auto) 2.9 % (0.0-4.3) 04/16/20 22:07 Baso % (Auto) 0.6 % (0.0-1.8) 04/16/20 22:07 Lymph # 3.2 K/mm3 (1.2-5.4) 04/16/20 22:07 Cherry # 1.2 K/mm3 (0.0-0.8) H 04/16/20 22:07 Eos # 0.3 K/mm3 (0.0-0.4) 04/16/20 22:07 Baso # 0.1 K/mm3 (0.0-0.1) 04/16/20 22:07 Seg Neutrophils % 54.1 % (40.0-70.0) 04/16/20 22:07 Seg Neutrophils # 5.6 K/mm3 (1.8-7.7) 04/16/20 22:07 PT 13.4 Sec. (12.2-14.9) 04/17/20 04:11 INR 1.01 (0.87-1.13) 04/17/20 04:11 APTT 26.2 Sec. (24.2-36.6) 04/16/20 22:07 Thrombin Time 17.5 Sec. (15.1-19.6) 04/16/20 22:07 Sodium 136 mmol/L (137-145) L 04/17/20 04:11 Potassium 4.0 mmol/L (3.6-5.0) 04/17/20 04:11 Chloride 97.6 mmol/L (98-107) L 04/17/20 04:11 Carbon Dioxide 25 mmol/L (22-30) 04/17/20 04:11 Anion Gap 17 mmol/L 04/17/20 04:11 BUN 8 mg/dL (7-17) 04/17/20 04:11 Creatinine 0.8 mg/dL (0.6-1.2) 04/17/20 04:11 Estimated GFR > 60 ml/min 04/17/20 04:11 BUN/Creatinine Ratio 10 % 04/17/20 04:11 Glucose 179 mg/dL (65-100) H 04/17/20 04:11 POC Glucose 197 (70-105) H 04/19/20 08:13 Calcium 9.6 mg/dL (8.4-10.2) 04/17/20 04:11 Total Bilirubin < 0.20 mg/dL (0.1-1.2) 04/16/20 22:07 AST 14 units/L (5-40) 04/16/20 22:07 ALT 12 units/L (7-56) 04/16/20 22:07 Alkaline Phosphatase 47 units/L (35-129) 04/16/20 22:07 Total Creatine Kinase 67 units/L (30-135) 04/16/20 22:07 CK-MB (CK-2) < 1.0 ng/mL (0.0-4.0) 04/16/20 22:07 CK-MB (CK-2) Rel Index 1.4 (0-4) 04/16/20 22:07 Troponin T < 0.010 ng/mL (0.00-0.029) 04/16/20 22:07 Total Protein 6.7 g/dL (6.3-8.2) 04/16/20 22:07 Albumin 3.4 g/dL (3.9-5) L 04/16/20 22:07 Albumin/Globulin Ratio 1.0 % 04/16/20 22:07 Triglycerides 134 mg/dL (2-149) 04/17/20 04:11 Cholesterol 169 mg/dL (50-199) 04/17/20 04:11 LDL Cholesterol Direct 105 mg/dL (50-130) 04/17/20 04:11 HDL Cholesterol 49 mg/dL (40-59) 04/17/20 04:11 Cholesterol/HDL Ratio 3.44 % 04/17/20 04:11 TSH 0.555 mlU/mL (0.270-4.200) 04/16/20 22:07 Urine Color Colorless (Yellow) 04/17/20 01:02 Urine Turbidity Clear (Clear) 04/17/20 01:02 Urine pH 7.0 (5.0-7.0) 04/17/20 01:02 Ur Specific Hardy 1.039 (1.003-1.030) H 04/17/20 01:02 Urine Protein <15 mg/dl mg/dL (Negative) 04/17/20 01:02 Urine Glucose (UA) Neg mg/dL (Negative) 04/17/20 01:02 Urine Ketones Neg mg/dL (Negative) 04/17/20 01:02 Urine Blood Neg (Negative) 04/17/20 01:02 Urine Nitrite Neg (Negative) 04/17/20 01:02 Urine Bilirubin Neg (Negative) 04/17/20 01:02 Urine Urobilinogen < 2.0 mg/dL (<2.0) 04/17/20 01:02 Ur Leukocyte Esterase Neg (Negative) 04/17/20 01:02 Urine WBC (Auto) < 1.0 /HPF (0.0-6.0) 04/17/20 01:02 Urine RBC (Auto) < 1.0 /HPF (0.0-6.0) 04/17/20 01:02 U Epithel Cells (Auto) 1.0 /HPF (0-13.0) 04/17/20 01:02 Urine Opiates Screen Presumptive negative 04/17/20 01:02 Urine Methadone Screen Presumptive negative 04/17/20 01:02 Ur Barbiturates Screen Presumptive negative 04/17/20 01:02 Ur Phencyclidine Scrn Presumptive negative 04/17/20 01:02 Ur Amphetamines Screen Presumptive negative 04/17/20 01:02 U Benzodiazepines Scrn Presumptive negative 04/17/20 01:02 Urine Cocaine Screen Presumptive negative 04/17/20 01:02 U Marijuana (THC) Screen Presumptive negative 04/17/20 01:02 Drugs of Abuse Note Disclamer 04/17/20 01:02 - Diagnostic Impressions Diagnostic Impressions: Echocardiogram 04/16/20 23:27 Transthoracic Echocardiogram Indication: Stroke BP: 173/101 HR: 84 Conclusions *Global left ventricular systolic function is at the lower limits of normal. *The estimated ejection fraction is 45-50%. *Mild to moderate concentric left ventricular hypertrophy is observed. *There is mild mitral regurgitation. *There is trace tricuspid regurgitation. *A patent foramen ovale is not demonstrated by agitated saline contrast. Findings Procedure Info: The study was technically limited due to the patient's inability to lay in the left lateral decubitus position. Left Ventricle: The left ventricular chamber size is normal. Mild to moderate concentric left ventricular hypertrophy is observed. Global left ventricular systolic function is at the lower limits of normal. The estimated ejection fraction is 45-50%. Left Atrium: The left atrial chamber size is normal. Right Ventricle: The right ventricular cavity size is normal. The right ventricular global systolic function is normal. Right Atrium: The right atrial cavity size is normal. A patent foramen ovale is not demonstrated by agitated saline contrast. Aortic Valve: The aortic valve leaflets are mildly thickened. There is no evidence of aortic regurgitation. There is no evidence of aortic stenosis. Mitral Valve: The mitral valve leaflets are mildly thickened. There is mild mitral regurgitation. There is no evidence of mitral stenosis. Tricuspid Valve: There is trace tricuspid regurgitation. No pulmonary hypertension is noted. Pulmonic Valve: There is trace pulmonic regurgitation. Pericardium: There is no pericardial effusion. Aorta: There is no dilatation of the ascending aorta. There is no dilatation of the aortic root. Venous: The inferior vena cava appears normal in size. Contrast: Intravenous agitated saline contrast was used to assess intracardiac shunting. Measurements Chambers 2D Name Value Normal Range IVSd (2D) 1.04 cm (0.6 - 1.1) LVPWd (2D) 1.03 cm (0.6 - 1.1) LVIDd (2D) 3.92 cm (3.7 - 5.6) LVIDs (2D) 2.66 cm (2 - 3.8) LV FS (2D) 32 % - EF Teichholz (2D) 60.78 % - Ao root diameter (2D) 2.57 cm (2 - 3.7) Volumes/Mass Name Value Normal Range LA ESV SP 4CH (A/L) 32.23 ml - LA ESV SP 2CH (A/L) 47.13 ml - LA ESV BP (A/L) 39.07 ml - LA ESV BP (A/L) index 19.93 ml/m2 - LA ESV SP 4CH (MOD) 31.7 ml - LA ESV SP 2CH (MOD) 42.58 ml - LA ESV BP (MOD) 36.67 ml - LA ESV BP (MOD) index 18.71 ml/m2 - LV EDV SP 4CH (MOD) 152.66 ml - LV ESV SP 4CH (MOD) 53.76 ml - EF SP 4CH (MOD) 64.79 % - LV EDV SP 2CH (MOD) 136.5 ml - LV ESV SP 2CH (MOD) 56.83 ml - EF SP 2CH (MOD) 58.37 % - LV EDV BP 145.57 ml - LV ESV BP 56.08 ml - BP EF (MOD) 61.48 % - Diastolic/Systolic Function Name Value Normal Range MV E-wave Vmax 0.73 m/sec - MV deceleration time 183.97 msec - MV A-wave Vmax 0.96 m/sec - MV E:A ratio 0.75 ratio - Aortic Valve Name Value Normal Range AV Vmax 1.13 m/sec - AV VTI 21.75 cm - AV peak gradient 5.13 mmHg - AV mean gradient 2.76 mmHg - LVOT diameter 2.3 cm - LVOT Vmax 0.73 m/sec - LVOT VTI 15.74 cm - LVOT peak gradient 2.15 mmHg - LVOT mean gradient 1.07 mmHg - SV LVOT 65.4 ml - SAMANTHA (continuity Vmax) 2.69 cm2 - SAMANTHA (continuity VTI) 3.01 cm2 - Ascending Ao 2.81 cm - Tricuspid Valve Name Value Normal Range IVC diameter 1.62 cm (1.2 - 2.3) Pulmonic Valve/Qp:Qs Name Value Normal Range PV Vmax 0.8 m/sec - PV VTI 14.94 cm - PV peak gradient 2.55 mmHg - PV mean gradient 1.35 mmHg - RVOT Vmax 0.64 m/sec - RVOT VTI 12.48 cm - RVOT peak gradient 1.61 mmHg - Brunson/IV: Voiding Method Toilet IV Catheter Type [Right Peripheral IV Antecubital] Active Medications - Current Medications Current Medications: Generic Name Dose Route Start Last Admin Trade Name Freq PRN Reason Stop Dose Admin Acetaminophen 650 mg 04/16/20 23:22 04/19/20 00:23 Tylenol PO 650 mg Q4H PRN Administration Pain MILD(1-3)/Fever >100.5/WEISS Alprazolam 0.25 mg 04/17/20 23:25 04/17/20 23:38 Xanax PO 0.25 mg Q8H PRN Administration Anxiety Amlodipine Besylate 5 mg 04/17/20 10:00 04/19/20 09:31 Amlodipine PO 5 mg DAILY JIMBO Administration Aspirin 325 mg 04/17/20 10:00 04/19/20 09:32 Aspirin PO 325 mg QDAY JIMBO Administration Atorvastatin Calcium 40 mg 04/17/20 22:00 04/18/20 22:31 Lipitor PO 40 mg QHS JIMBO Administration Bisacodyl 10 mg 04/16/20 23:22 Dulcolax IN QDAY PRN Constipation Dextrose 50 ml 04/17/20 06:35 D50w (25gm) Syringe IV Q30MIN PRN Hypoglycemia Protocol Enoxaparin Sodium 40 mg 04/17/20 22:00 04/18/20 22:30 Enoxaparin SUB-Q 40 mg QDAY@2200 JIMBO Administration Protocol Insulin Human Lispro 0 unit 04/17/20 07:30 04/19/20 09:28 Humalog SUB-Q 2 unit ACHS JIMBO Administration Protocol Labetalol HCl 10 mg 04/18/20 04:18 04/18/20 04:42 Labetalol IV 10 mg Q6HR PRN Administration Increased Blood Pressure Lisinopril 10 mg 04/17/20 10:00 04/19/20 09:31 Zestril PO 10 mg QDAY JIMBO Administration Magnesium Hydroxide 30 ml 04/16/20 23:22 Milk Of Magnesia PO Q4H PRN Constipation Metoclopramide HCl 10 mg 04/16/20 23:22 Reglan PO Q6H PRN Nausea And Vomiting Ondansetron HCl 4 mg 04/16/20 23:22 Zofran IV Q8H PRN Nausea And Vomiting Promethazine HCl 25 mg 04/16/20 23:22 Phenergan IN Q6H PRN Nausea And Vomiting Sodium Chloride 10 ml 04/17/20 10:00 04/19/20 09:32 Sodium Chloride Flush Syringe 10 Ml IV 10 ml BID JIMBO Administration Sodium Chloride 10 ml 04/16/20 23:22 Sodium Chloride Flush Syringe 10 Ml IV PRN PRN LINE FLUSH Nutrition/Malnutrition Assess - Dietary Evaluation Nutrition/Malnutrition Findings: Nutrition Notes Start: 04/17/20 14:16 Freq: Status: Active Protocol: Document 04/17/20 14:16 AL (Rec: 04/17/20 14:27 AL [id number]) Co-Sign 04/17/20 14:16 NHALL Nutrition Notes Need for Assessment generated from: MD Order,Education Initial or Follow up Brief Note Current Diagnosis Stroke Current Diet Cardiac Diet Height 5 ft 8 in Rankin Body Weight (kg) 63.63 Weight Status Overweight Subjective/Other Information RD consulted for nutrition recommendations and diet education. Pt. takes BP and BG medications at home. Pt is familiar with food sources of CHO. Pt. has been diabetic for 15 years and reports family history of high blood pressure and diabetes. Denies need for diet education but does verbalized food preference. Pt . is eager to get physically activ by purchasing a recumbent bicycle. Burn Absent Trauma Absent GI Symptoms None Minimum of two criteria No #1 Nutrition Diagnosis Food and nutrition-related knowledge deficit Nutrition Intervention Revisit per MD consult or patient Sign Off request:
--- NOTE | 2020-04-19 10:07 | Discharge Summary ---
Providers - Providers Date of Admission: 04/17/20 16:52 Date of discharge: 04/19/20 Attending physician: TRISH DRAPER 04/16/20 Consult to Physician [CONS] Routine Comment: Consulting Provider: KEATON PAIZ Physician Instructions: Reason For Exam: R/O CVA 04/16/20 23:23 Consult to Dietitian/Nutrition [CONS] Routine Physician Instructions: Reason For Exam: Reason for Consult: Nutrition Recommendations Reason for Consult: Diet education Occupational Therapy Evaluate and Treat [CONS] Routine Comment: Reason For Exam: Neuro deficits Physical Therapy Evaluation and Treat [CONS] Routine Comment: Reason For Exam: Neuro deficits 04/18/20 09:12 Consult to Physician [CONS] Routine Comment: Consulting Provider: ANASTASIA CARR Physician Instructions: Reason For Exam: KILO stenosis Hospitalization Reason for admission: CVA Condition: Serious Hospital course: The patient is a 64-year-old female who presented to the emergency department on Thursday after she states she was initially talking on the phone with her daughter and going to initiate a conversation with another family member however when she reached for her phone she noticed numbness and tingling of her mouth and then noticed that she was unable to move her left side. She also noticed that she was experiencing slurred speech. She called out for her who noted the same symptoms and transported to the emergency department. Upon arrival to the emergency department, she was noted to have left-sided weakness and had a work-up for stroke which revealed focal areas of subacute ischemia in the right cerebral hemisphere. Her carotid duplex and CTA of the neck revealed approximately 70% stenosis of the right internal carotid artery. She relates a history of TIA approximately 15 years ago however she states the symptom was seeing halos which is not consistent with a TIA. She denied any localized numbness or weakness. Prior to this episode she did have 4 to 5 days of nausea and vomiting but denies any other complaints. Patient was seen by vascular surgery and neurology in consultation. MRI confirmed right cerebral subacute infarct. Patient also had echocardiogram that revealed global left ventricular systolic function at the lower limits of normal with a EF of 45 to 50%. A patent foramen ovale was not demonstrated by agitated saline contrast. Vascular surgery recommended maintaining systolic blood pressure less than 140 and diastolic less than 80 and blood pressure medications were adjusted accordingly. Also, recommendations for Plavix and statin therapy with Lipitor 40 mg daily. Patient is to be evaluated by physical therapy and if considered stable will discharge with home health PT versus SNF. Patient is to follow-up with vascular surgery in 2 weeks. Dedicated discharge time 35 minutes. Disposition: [id number] HOME UNDER HOME [facility] Time spent for discharge: 35 Core Measure Documentation - Palliative Care Palliative Care/ Comfort Measures: Not Applicable - Core Measures Any of the following diagnoses?: stroke - Stroke Discharge Requirements Statin for LDL = or >70 mg/dl on DC: Yes Anticoag for atrial fib/atrial flutter: Not Applicable Antithrombotic for ischemic stroke: Yes Exam - Constitutional Vitals: Temp Pulse Resp BP Pulse Ox 98.2 F 66 18 132/66 99 04/19/20 04:07 04/19/20 09:31 04/19/20 04:07 04/19/20 09:31 04/19/20 04:07 General appearance: Present: no acute distress, well-nourished - EENT Eyes: Present: PERRL ENT: hearing intact, clear oral mucosa - Neck Neck: Present: supple, normal ROM - Respiratory Respiratory effort: normal Respiratory: bilateral: CTA - Cardiovascular Heart Sounds: Present: S1 & S2. Absent: rub, click - Extremities Extremities: pulses symmetrical, No edema Peripheral Pulses: within normal limits - Abdominal General gastrointestinal: Present: soft, non-tender, non-distended, normal bowel sounds Female genitourinary: Present: normal - Integumentary Integumentary: Present: clear, warm, dry - Musculoskeletal Musculoskeletal: gait normal, strength equal bilaterally - Psychiatric Psychiatric: appropriate mood/affect, intact judgment & insight - Neurologic Neurologic: CNII-XII intact, moves all extremities Plan Activity: advance as tolerated Weight Bearing Status: Weight Bear as Tolerated Diet: low fat, low cholesterol, low salt Special Instructions: physical therapy Follow up with: HIMANSHU PIÑA [Other] - 7 Days ANASTASIA CARR MD [Staff Physician] - 7 Days Prescriptions: AtorvaSTATin [Lipitor] 40 mg PO QHS #30 tablet Metformin HCl [metFORMIN] 1,000 mg PO BID 30 Days Amlodipine Besylate [Norvasc] 5 mg PO DAILY #30 Insulin NPH Human Isophane [Novolin N] 22 unit SQ BID 30 Days vial Clopidogrel [Plavix] 75 mg PO QDAY #30 tablet lisinopriL [Zestril TAB] 10 mg PO QDAY #30
--- NOTE | 2020-04-19 11:05 | Cat Scan Report ---
. CT head/brain wo con INDICATION / CLINICAL INFORMATION: 64 years Female; right CVA, severe headache. TECHNIQUE: Routine CT head without contrast. All CT scans at this location are performed using CT dos e reduction for ALARA by means of automated exposure control. COMPARISON: 04/16/2020 FINDINGS: BRAIN / INTRACRANIAL CONTENTS: There is a new area of mild decreased attenuation peripherally in the white matter of the superior parietal lobule/precuneus on the right, when compared with prior. These findings correspond with subtle areas of ischemia on recent MRI from 04/17/2020. No signs of hemorrhag ic transformation. Probable, small arachnoid cyst along the dorsal surface of both cerebellar hemispheres - of no clinic al significance. Otherwise, no acute hemorrhage, mass effect, midline shift, or acute, large territorial infarct. Mild cerebral and cerebellar atrophy. Prominent ventricular system again noted - normal pressure hydr ocephalus might be consideration. There are [id number] areas of decreased attenuation in the white matter of the cerebral hemisph eres. These are nonspecific findings and may be related to microangiopathy (hypertension, diabetes, a therosclerosis), given the patient's age. It might be difficult to evaluate for small areas of ischem ia without diffusion imaging by MRI. CRANIOCERVICAL JUNCTION: No significant abnormality. ORBITS: No significant abnormality of visualized orbits. SINUSES / MASTOIDS: Mild to moderate mucosal thickening seen in the posterior ethmoids on the right. ADDITIONAL FINDINGS: Mild atherosclerotic disease is seen in the anterior and posterior circulation. IMPRESSION: 1. No significant, detrimental change from recent MRI. Follow-up as clinically warranted. Signer Name: Lauri Longoria MD, III Signed: 04/19/2020 11:01 AM Workstation Name: [employer]
[2020-04-19 14:34] VITALS: BP 159/88
[2020-04-20] MEDS ORDERED: CLOPIDOGREL 75 MG TAB PO SCH (10:00)
== END 2020-04-19 18:13 | disposition home health service (06) | DRG 65 ==
LOC: ED 21:32 → INTOOBSV 23:12 → OBSVTOIN 23:12 → 4A 23:12 → UNDOADMOB 23:12 → OBSVTOIN 04-17 16:52 → 4A 04-17 16:52
PROVIDERS: ADMIT Internal Medicine Geriatric Medicine; ATTEND Hospitalist
DX: I63.9 Cerebral infarction, unspecified (principal); G81.94 Hemiplegia, unspecified affecting left nondominant side; D64.9 Anemia, unspecified; I10 Essential (primary) hypertension; E11.9 Type 2 diabetes mellitus without complications; I65.21 Occlusion and stenosis of right carotid artery; E78.5 Hyperlipidemia, unspecified; R29.706 NIHSS score 6; Z79.82 Long term (current) use of aspirin; Z79.899 Other long term (current) drug therapy
CPT/HCPCS: 36415; 70450; 70496; 70498; 70551; 80048; 80053; 80061; 80307; 81001; 82550; 82553; 82962; 84443; 84484; 85025; 85610; 85670; 85730; 93005; 93306; 93880; G0378; A9270-GY; J1650; J2060; Q9967

== ENCOUNTER 2021-09-28 15:04 | Emergency (ER) | payer MEDICARE, OTHER ==
[2021-09-28 16:34] VITALS: BP 172/142
[2021-09-28] MEDS ORDERED: ONDANSETRON 4 MG ODT TAB PO ONE (16:48)
[2021-09-28] MEDS ORDERED: SODIUM CHLORIDE 0.9% 500 ML 500 ML IV ONE (16:48)
[2021-09-28] MEDS ORDERED: MORPHINE 4 MG/1 ML INJ IV ONE (16:48)
[2021-09-28 17:13] LABS: Basophils % (Auto) 0.6 % (0.0-1.8); Eosinophils # (Auto) 0.1 K/mm3 (0.0-0.4); Eosinophils % (Auto) 1.1 % (0.0-4.3); Hematocrit 32.8 % (30.3-42.9); Hemoglobin 10.9 gm/dl (10.1-14.3); Lymphocytes % (Auto) 37.1 % (13.4-35.0); Mean Corpuscular HGB Conc 33 % (30-34); Mean Corpuscular Volume 83 fl (79-97); Monocytes # (Auto) 0.8 K/mm3 (0.0-0.8); Monocytes % (Auto) 9.4 % (0.0-7.3); Platelet Count 294 K/mm3 (140-440); Red Blood Count 3.96 M/mm3 (3.65-5.03); Red Cell Distribution Width 15.8 % (13.2-15.2)
[2021-09-28 17:25] LABS: INR 0.86 (0.87-1.13)
[2021-09-28 17:39] LABS: Alanine Aminotransferase 10 units/L (7-56); Albumin 4.3 g/dL (3.9-5); BUN/Creatinine Ratio 11; Blood Urea Nitrogen 9 mg/dL (7-17); Calcium 10.1 mg/dL (8.4-10.2); Hemolysis Index 6
--- NOTE | 2021-09-28 17:39 | Emergency Department Report ---
ED Headache HPI - General Chief Complaint: Headache Stated Complaint: HEADACHE/WEAKNESS/BLOOD CLOTS Time Seen by Provider: 09/28/21 16:22 Source: patient Exam Limitations: no limitations - History of Present Illness Initial Comments: HEADACHE PT NOTIFIED BY MYRNA PADILLA THAT SHE HAS A BLOOD CLOT ON HER BRAIN Timing/Duration: 24 hours Quality: moderate Head Injury Location: global Recent Head Trauma: no recent headache/trauma Associated Symptoms: denies: confusion, fatigue, facial pain, loss of consciousness, nausea/vomiting, nasal congestion, nasal drainage, seizures, sinus infection, stiff neck, vision changes Allergies/Adverse Reactions: Allergies amoxicillin [From Augmentin] Allergy (Verified 04/16/20 23:00) Hives clavulanic acid [From Augmentin] Allergy (Verified 04/16/20 23:00) Hives Home Medications: Ambulatory Orders Amlodipine Besylate [Norvasc] 5 mg PO DAILY #30 04/19/20 AtorvaSTATin [Lipitor] 40 mg PO QHS #30 tablet 04/19/20 Clopidogrel [Plavix] 75 mg PO QDAY #30 tablet 04/19/20 Insulin NPH Human Isophane [Novolin N] 22 unit SQ BID 30 Days vial 04/19/20 Metformin HCl [metFORMIN] 1,000 mg PO BID 30 Days 04/19/20 lisinopriL [Zestril TAB] 10 mg PO QDAY #30 04/19/20 ED Review of Systems ROS: Stated complaint: HEADACHE/WEAKNESS/BLOOD CLOTS Other details as noted in HPI Constitutional: denies: chills, fever Eyes: denies: eye pain, eye discharge, vision change ENT: denies: ear pain, throat pain Respiratory: denies: cough, shortness of breath, wheezing Cardiovascular: denies: chest pain, palpitations Endocrine: no symptoms reported Gastrointestinal: denies: abdominal pain, nausea, diarrhea Genitourinary: denies: urgency, dysuria, discharge Musculoskeletal: denies: back pain, joint swelling, arthralgia Skin: denies: rash, lesions Neurological: denies: headache, weakness, paresthesias Psychiatric: denies: anxiety, depression Hematological/Lymphatic: denies: easy bleeding, easy bruising ED Past Medical Hx - Past Medical History Previous Medical History?: Yes Hx Hypertension: Yes Hx CVA: Yes (TIA) Hx Diabetes: Yes - Surgical History Past Surgical History?: No - Social History Smoking Status: Never Smoker Substance Use Type: None - Medications Home Medications: Home Medications Medication Instructions Recorded Confirmed Last Taken Type Amlodipine Besylate [Norvasc] 5 mg PO DAILY #30 04/19/20 Unknown Rx AtorvaSTATin [Lipitor] 40 mg PO QHS #30 tablet 04/19/20 Unknown Rx Clopidogrel [Plavix] 75 mg PO QDAY #30 tablet 04/19/20 Unknown Rx Insulin NPH Human Isophane 22 unit SQ BID 30 Days vial 04/19/20 Unknown Rx [Novolin N] Metformin HCl [metFORMIN] 1,000 mg PO BID 30 Days 04/19/20 Unknown Rx lisinopriL [Zestril TAB] 10 mg PO QDAY #30 04/19/20 Unknown Rx ED Physical Exam - General Limitations: Physical Limitation General appearance: alert, in no apparent distress - Head Head exam: Present: atraumatic, normocephalic - Eye Eye exam: Present: normal appearance - ENT ENT exam: Present: mucous membranes moist - Neck Neck exam: Present: normal inspection - Respiratory Respiratory exam: Present: normal lung sounds bilaterally. Absent: respiratory distress - Cardiovascular Cardiovascular Exam: Present: regular rate, normal rhythm. Absent: systolic murmur, diastolic murmur, rubs, gallop - GI/Abdominal GI/Abdominal exam: Present: soft, normal bowel sounds - Extremities Exam Extremities exam: Present: normal inspection - Back Exam Back exam: Present: normal inspection - Neurological Exam Neurological exam: Present: alert, oriented X3 - Psychiatric Psychiatric exam: Present: normal affect, normal mood - Skin Skin exam: Present: warm, dry, intact, normal color. Absent: rash ED Course Vital Signs 09/28/21 09/28/21 09/28/21 15:16 15:41 15:44 Pulse Rate 80 70 Respiratory 16 20 16 Rate Blood Pressure 187/94 Blood Pressure 203/77 [Left] O2 Sat by Pulse 98 100 Oximetry 09/28/21 09/28/21 09/28/21 15:45 16:01 16:15 Pulse Rate 88 88 99 H Respiratory 15 16 29 H Rate Blood Pressure 187/94 142/114 142/114 Blood Pressure [Left] O2 Sat by Pulse 99 100 100 Oximetry 09/28/21 16:31 Pulse Rate Respiratory Rate Blood Pressure 172/142 Blood Pressure [Left] O2 Sat by Pulse 99 Oximetry - Reevaluation(s) Reevaluation #1: 09/28/21 17:[address] and CTA from [facility] , it showed patrial thrombus in left internal carotd artery . spoke with dr Jade Spring , he recommended sarting on DOACs and follow up with him or who did the right side. pt stated that she doesn;t remeber the name but she did it in [place] , so we will refer her to Dr wang OP , VSS, headche is better after pain meds ED Medical Decision Making - Lab Data Result diagrams: 09/28/21 17:03 Critical care attestation.: If time is entered above; I have spent that time in minutes in the direct care of this critically ill patient, excluding procedure time. ED Disposition Clinical Impression: Headache, Uncontrolled hypertension, Occlusion of left internal carotid artery Disposition: 01 HOME / SELF CARE / HOMELESS Is pt being admited?: No Does the pt Need Aspirin: No Condition: Stable Instructions: Hypertension (ED), Hypertension, Adult, Carotid Artery Disease, [id number] Referrals: PRIMARY MD CADE [Primary Care Provider] - 3-5 Days TERRENCE WANG MD [Staff Physician] - 3-5 Days
== END 2021-09-28 19:35 | disposition home or self-care (01) ==
LOC: ED 15:04
DX: I10 Essential (primary) hypertension (principal); R51.9 Headache, unspecified; I65.22 Occlusion and stenosis of left carotid artery; E11.9 Type 2 diabetes mellitus without complications; Z86.73 Personal history of transient ischemic attack (TIA), and cerebral infarction without residual deficits
CPT/HCPCS: 36415; 80053; 85025; 85610; 96374; 99284; J2270; J7040; J3490; Q0162

== ENCOUNTER 2021-10-10 11:20 | Observation (INO) | payer MEDICARE ==
--- NOTE | 2021-10-10 13:08 | Emergency Department Report ---
ED Neuro Deficit HPI - General Chief Complaint: Neuro Symptoms/Deficit Stated Complaint: HEADACHE/RT SIDE PAIN/NAUSEA Time Seen by Provider: 10/10/21 13:02 Source: patient Mode of arrival: Wheelchair Limitations: No Limitations - History of Present Illness Initial Comments: Chief complaint: Headache HPI: This is a 65-year-old female with history of CVA with right-sided weakness residual, TIA, hypertension, diabetes mellitus who presents with headache nausea confusion lack of coordination this morning. Gradual onset of headache. Right- sided sharp severe 05/12. 2 weeks ago on September 28, patient was informed that she had partial thrombus of the left internal carotid. She was referred to Dr. Hansen vascular specialist. At that time she presented with headache. In July patient underwent right carotid endarterectomy. Patient called her . came from work. He thought she was having a stroke. She seemed confused. She appeared discoordinated. -: Sudden, This morning Location: ataxia, other (Headache confusion) History of same: Yes Place: home Severity: mild Improves With: time Worsens With: none On Anticoagulants: Yes Context: sudden onset Associated Symptoms: confusion Treatments Prior to Arrival: none - Related Data Home Medications: Previous Rx's Medication Instructions Recorded Last Taken Type Amlodipine Besylate [Norvasc] 5 mg PO DAILY #30 04/19/20 Unknown Rx AtorvaSTATin [Lipitor] 40 mg PO QHS #30 tablet 04/19/20 Unknown Rx Clopidogrel [Plavix] 75 mg PO QDAY #30 tablet 04/19/20 Unknown Rx Insulin NPH Human Isophane 22 unit SQ BID 30 Days vial 04/19/20 Unknown Rx [Novolin N] Metformin HCl [metFORMIN] 1,000 mg PO BID 30 Days 04/19/20 Unknown Rx lisinopriL [Zestril TAB] 10 mg PO QDAY #30 04/19/20 Unknown Rx Apixaban [Eliquis] 5 mg PO BID #30 09/28/21 Unknown Rx Allergies/Adverse Reactions: Allergies Allergy/AdvReac Type Severity Reaction Status Date / Time amoxicillin [From Augmentin] Allergy Hives Verified 04/16/20 23:00 clavulanic acid Allergy Hives Verified 04/16/20 23:00 [From Augmentin] ED Review of Systems ROS: Stated complaint: HEADACHE/RT SIDE PAIN/NAUSEA Other details as noted in HPI Comment: All other systems reviewed and negative Constitutional: denies: chills, fever, malaise Respiratory: denies: cough, shortness of breath Cardiovascular: denies: chest pain Gastrointestinal: denies: abdominal pain, nausea, vomiting Skin: denies: rash, lesions Neurological: headache, weakness, confusion, abnormal gait ED Past Medical Hx - Past Medical History Previous Medical History?: Yes Hx Hypertension: Yes Hx CVA: Yes (TIA) Hx Diabetes: Yes - Surgical History Past Surgical History?: No - Social History Smoking Status: Never Smoker Substance Use Type: None - Medications Home Medications: Home Medications Medication Instructions Recorded Confirmed Last Taken Type Amlodipine Besylate [Norvasc] 5 mg PO DAILY #30 04/19/20 Unknown Rx AtorvaSTATin [Lipitor] 40 mg PO QHS #30 tablet 04/19/20 Unknown Rx Clopidogrel [Plavix] 75 mg PO QDAY #30 tablet 04/19/20 Unknown Rx Insulin NPH Human Isophane 22 unit SQ BID 30 Days vial 04/19/20 Unknown Rx [Novolin N] Metformin HCl [metFORMIN] 1,000 mg PO BID 30 Days 04/19/20 Unknown Rx lisinopriL [Zestril TAB] 10 mg PO QDAY #30 04/19/20 Unknown Rx Apixaban [Eliquis] 5 mg PO BID #30 09/28/21 Unknown Rx ED Neuro Physical Exam - General Limitations: No Limitations General appearance: alert, in no apparent distress Suspected Stroke: Yes - Head Head exam: Present: atraumatic, normocephalic - Eye Eye exam: Present: normal appearance - ENT ENT exam: Present: mucous membranes moist - Neck Neck exam: Present: normal inspection, full ROM - Respiratory Respiratory exam: Present: normal lung sounds bilaterally. Absent: respiratory distress, wheezes, rales, rhonchi - Cardiovascular Cardiovascular Exam: Present: regular rate, normal rhythm, normal heart sounds. Absent: systolic murmur, diastolic murmur, rubs, gallop - GI/Abdominal GI/Abdominal exam: Present: soft, normal bowel sounds. Absent: distended, tenderness, guarding, rebound - Extremities Exam Extremities exam: Present: normal inspection - Neurological Exam Neurological exam: Present: alert, oriented X3 - NIHSS Assessment Interval: Baseline 1a. Level of Consciousness: alert/keenly responsive 1b. LOC Questions: answers both correctly 1c. LOC Commands: performs tasks correctly 2. Best Gaze: normal 3. Visual: no visual loss 4. Facial Palsy: normal symmetrical movement 5b. Motor Arm Right: drift 5a. Motor Arm Left: no drift 6a. Motor Leg Left: no drift 6b. Motor Leg Right: drift 7. Limb Ataxia: absent 8. Sensory: normal 9. Best Language: no aphasia 10. Dysarthria: normal 11. Extinction/Inattention: no abnormality Total Score: 2 Stroke Severity: Minor Stroke - Psychiatric Psychiatric exam: Present: normal affect, normal mood - Skin Skin exam: Present: warm, dry, intact, normal color. Absent: rash ED Course Vital Signs 10/10/21 12:32 Temperature 98.6 F Pulse Rate 73 Respiratory 18 Rate Blood Pressure 153/69 O2 Sat by Pulse 99 Oximetry - Lab Data Result diagrams: 10/10/21 14:20 10/10/21 14:20 Lab Results 10/10/21 10/10/21 10/10/21 Range/Units 13:20 14:20 14:20 WBC 8.0 (4.5-11.0) K/mm3 RBC 3.95 (3.65-5.03) M/mm3 Hgb 10.3 (10.1-14.3) gm/dl Hct 33.2 (30.3-42.9) % MCV 84 (79-97) fl MCH 26 L (28-32) pg MCHC 31 (30-34) % RDW 15.8 H (13.2-15.2) % Plt Count 261 (140-440) K/mm3 Lymph % (Auto) 32.5 (13.4-35.0) % [place] % (Auto) 11.3 H (0.0-7.3) % Eos % (Auto) 2.1 (0.0-4.3) % Baso % (Auto) 0.5 (0.0-1.8) % Lymph # (Auto) 2.6 (1.2-5.4) K/mm3 [place] # (Auto) 0.9 H (0.0-0.8) K/mm3 Eos # (Auto) 0.2 (0.0-0.4) K/mm3 Baso # (Auto) 0.0 (0.0-0.1) K/mm3 Seg Neutrophils % 53.6 (40.0-70.0) % Seg Neutrophils # 4.3 (1.8-7.7) K/mm3 PT 17.8 H (12.2-14.9) Sec. INR 1.31 H (0.87-1.13) APTT 30.2 (24.2-36.6) Sec. Thrombin Time 17.7 (15.1-19.6) Sec. Sodium (137-145) mmol/L Potassium (3.6-5.0) mmol/L Chloride (98-107) mmol/L Carbon Dioxide (22-30) mmol/L Anion Gap mmol/L BUN (7-17) mg/dL Creatinine (0.6-1.2) mg/dL Estimated GFR ml/min BUN/Creatinine Ratio % Glucose (65-100) mg/dL POC Glucose 86 (70-105) mg/dL Calcium (8.4-10.2) mg/dL Total Creatine Kinase (30-135) units/L CK-MB (CK-2) (0.0-4.0) ng/mL CK-MB (CK-2) Rel Index (0-4) Troponin T (0.00-0.029) ng/mL 10/10/21 Range/Units 14:20 WBC (4.5-11.0) K/mm3 RBC (3.65-5.03) M/mm3 Hgb (10.1-14.3) gm/dl Hct (30.3-42.9) % MCV (79-97) fl MCH (28-32) pg MCHC (30-34) % RDW (13.2-15.2) % Plt Count (140-440) K/mm3 Lymph % (Auto) (13.4-35.0) % [place] % (Auto) (0.0-7.3) % Eos % (Auto) (0.0-4.3) % Baso % (Auto) (0.0-1.8) % Lymph # (Auto) (1.2-5.4) K/mm3 [place] # (Auto) (0.0-0.8) K/mm3 Eos # (Auto) (0.0-0.4) K/mm3 Baso # (Auto) (0.0-0.1) K/mm3 Seg Neutrophils % (40.0-70.0) % Seg Neutrophils # (1.8-7.7) K/mm3 PT (12.2-14.9) Sec. INR (0.87-1.13) APTT (24.2-36.6) Sec. Thrombin Time (15.1-19.6) Sec. Sodium 139 (137-145) mmol/L Potassium 4.7 (3.6-5.0) mmol/L Chloride 102.6 (98-107) mmol/L Carbon Dioxide 26 (22-30) mmol/L Anion Gap 15 mmol/L BUN 11 (7-17) mg/dL Creatinine 0.7 (0.6-1.2) mg/dL Estimated GFR > 60 ml/min BUN/Creatinine Ratio 16 % Glucose 83 (65-100) mg/dL POC Glucose (70-105) mg/dL Calcium 9.8 (8.4-10.2) mg/dL Total Creatine Kinase 77 (30-135) units/L CK-MB (CK-2) 1.6 (0.0-4.0) ng/mL CK-MB (CK-2) Rel Index 2.0 (0-4) Troponin T < 0.010 (0.00-0.029) ng/mL - EKG Data -: EKG Interpreted by Sd EKG shows normal: sinus rhythm, axis, intervals, QRS complexes, ST-T waves Rate: normal Interpretation: normal EKG 10/10/21 13:27 EKG obtained 1318 EKG interpreted by ms Normal sinus rhythm normal rate normal axis normal intervals no ST elevation no ST-T signs of ischemia normal EKG - Radiology Data Radiology results: report reviewed Patient Name: LA ZEPEDA Gender: Female Date of : 1955 Referring Provider: ELVIRA REED Organization: [facility] Accession Number: [id number] Requested Date: October 10, 2021 13:08 Report Status: Final Requested Procedure: 1 Procedure Description: CT head/brain wo con Modality: CT Findings Reporting MD: Khalif Burch Dictation Time: October 10, 2021 12:51 Improvement Nurse: Not available Crosstie Inspector Date: CT head/brain wo con INDICATION: stroke symptoms headache confusion. TECHNIQUE: Routine CT head. All CT scans at this location are performed using CT dose reduction for ALARA by means of automated exposure control. COMPARISON: CT head 04/19/2020 FINDINGS: Intracranial: Rodriguez-white matter differentiation is maintained. No intracranial hemorrhage. No extra axial collection. Unchanged prominent ventricular caliber with sharp callososeptal.. No herniation. Periventricular and centrum semiovale white matter hypoattenuation most consistent with sequela of chronic microvascular disease. Sinuses: Paranasal sinuses and mastoid air cells are essentially clear. Orbits: Globes are intact. Calvarium: No acute fracture. IMPRESSION: 1. No acute findings. Unchanged prominent ventricular caliber which is nonspe cific but could represent normal pressure hydrocephalus in the correct clinical setting. Signer Name: Khalif Burch MD Signed: 10/10/2021 12:51 PM Workstation Name: [id number] - Medical Decision Making Clinical impression: TIA. stated that patient looked as if she had a stroke. She had confusion. She had loss of coordination. She was recently evaluated this ER for new left ICA stenosis. Her PCP has arranged for follow-up with new neurologist next week. Patient is admitted to the hospital service. Labs CBC chemistry within normal limits. PT/INR elevated patient takes Eliquis. Critical care attestation.: If time is entered above; I have spent that time in minutes in the direct care of this critically ill patient, excluding procedure time. ED Disposition Clinical Impression: Occlusion of left internal carotid artery, TIA (transient ischemic attack) Disposition: ADMITTED INPATIENT Is pt being admited?: Yes Does the pt Need Aspirin: No Condition: Stable
--- NOTE | 2021-10-10 13:56 | Cat Scan Report ---
CT head/brain wo con INDICATION: stroke symptoms headache confusion. TECHNIQUE: Routine CT head. All CT scans at this location are performed using CT dose reduction for A JOHN by means of automated exposure control. COMPARISON: CT head 04/19/2020 FINDINGS: Intracranial: Rodriguez-white matter differentiation is maintained. No intracranial hemorrhage. No extra a xial collection. Unchanged prominent ventricular caliber with sharp callososeptal.. No herniation. Pe riventricular and centrum semiovale white matter hypoattenuation most consistent with sequela of resource development director tracey microvascular disease. Sinuses: Paranasal sinuses and mastoid air cells are essentially clear. Orbits: Globes are intact. Calvarium: No acute fracture. IMPRESSION: 1. No acute findings. Unchanged prominent ventricular caliber which is nonspecific but could represen t normal pressure hydrocephalus in the correct clinical setting. Signer Name: Khalif Burch MD Signed: 10/10/2021 1:51 PM Workstation Name: [id number]
[2021-10-10 14:33] LABS: Basophils % (Auto) 0.5 % (0.0-1.8); Eosinophils # (Auto) 0.2 K/mm3 (0.0-0.4); Eosinophils % (Auto) 2.1 % (0.0-4.3); Hematocrit 33.2 % (30.3-42.9); Hemoglobin 10.3 gm/dl (10.1-14.3); Lymphocytes # (Auto) 2.6 K/mm3 (1.2-5.4); Lymphocytes % (Auto) 32.5 % (13.4-35.0); Mean Corpuscular HGB Conc 31 % (30-34); Mean Corpuscular Volume 84 fl (79-97); Monocytes # (Auto) 0.9 K/mm3 (0.0-0.8); Monocytes % (Auto) 11.3 % (0.0-7.3); Platelet Count 261 K/mm3 (140-440); Red Blood Count 3.95 M/mm3 (3.65-5.03); Red Cell Distribution Width 15.8 % (13.2-15.2)
[2021-10-10 14:43] LABS: INR 1.31 (0.87-1.13)
[2021-10-10 14:44] LABS: Partial Thromboplastin Time 30.2 Sec. (24.2-36.6); Thrombin Time 17.7 Sec. (15.1-19.6)
[2021-10-10 15:04] LABS: Creatine Kinase MB 1.6 ng/mL (0.0-4.0)
[2021-10-10 15:05] LABS: Blood Urea Nitrogen 11 mg/dL (7-17); Calcium 9.8 mg/dL (8.4-10.2); Hemolysis Index 14
[2021-10-10 15:07] LABS: BUN/Creatinine Ratio 16
--- NOTE | 2021-10-10 20:52 | History and Physical Report ---
History of Present Illness Date of examination: 10/10/21 Date of admission: October 10, 2021 Chief complaint: Left-sided weakness lasting for 1 hour History of present illness: 65-year-old -[place] female with history of insulin-dependent diabetes, CVA in the past, hyperlipidemia and hypertension with right-sided residual weakness presents with left-sided weakness for 1 hour which is resolved completely. Patient has no symptoms now at the time of my admissions. Patient had right internal carotid artery endarterectomy couple months ago. Patient also has left carotid artery stenosis degradation of which is not known. Patient is supposed to follow-up with [facility] vascular [place]. No dysarthria. No weakness at this point. No diaphoresis. No chest pain. - Past Medical History --Previous Medical History?: Yes --Hypertension: Yes --CVA: Yes Rt residual hemiparesis --Diabetes: Yes - Surgical History --Past Surgical History?: No - Social History --Smoking Status: Never Smoker --Substance Use Type: None - Medications --Home Medications: Home Medications Medication Instructions Recorded Confirmed Last Taken Type Amlodipine Besylate [Norvasc] 5 mg PO DAILY #30 04/19/20 Unknown Rx AtorvaSTATin [Lipitor] 40 mg PO QHS #30 tablet 04/19/20 Unknown Rx Clopidogrel [Plavix] 75 mg PO QDAY #30 tablet 04/19/20 Unknown Rx Insulin NPH Human Isophane 22 unit SQ BID 30 Days vial 04/19/20 Unknown Rx [Novolin N] Metformin HCl [metFORMIN] 1,000 mg PO BID 30 Days 04/19/20 Unknown Rx lisinopriL [Zestril TAB] 10 mg PO QDAY #30 04/19/20 Unknown Rx Apixaban [Eliquis] 5 mg PO BID #30 09/28/21 Unknown Rx Review of Systems ROS: Stated complaint: HEADACHE/RT SIDE PAIN/NAUSEA Other details as noted in HPI Comment: All other systems reviewed and negative Constitutional: denies: chills, fever, malaise Respiratory: denies: cough, shortness of breath Cardiovascular: denies: chest pain Gastrointestinal: denies: abdominal pain, nausea, vomiting Skin: denies: rash, lesions Neurological: headache, weakness, confusion, abnormal gait Medications and Allergies Allergies Allergy/AdvReac Type Severity Reaction Status Date / Time amoxicillin [From Augmentin] Allergy Hives Verified 04/16/20 23:00 clavulanic acid Allergy Hives Verified 04/16/20 23:00 [From Augmentin] Home Medications Medication Instructions Recorded Confirmed Last Taken Type Insulin NPH Human Isophane 22 unit SQ BID 30 Days vial 04/19/20 Unknown Rx [Novolin N] Metformin HCl [metFORMIN] 1,000 mg PO BID 30 Days 04/19/20 Unknown Rx lisinopriL [Zestril TAB] 10 mg PO QDAY #30 04/19/20 Unknown Rx Exam - Constitutional Vitals: Temp Pulse Resp BP Pulse Ox 98.1 F 76 18 180/78 98 10/10/21 20:44 10/10/21 20:44 10/10/21 20:44 10/10/21 20:44 10/10/21 20:44 General appearance: Present: no acute distress, well-nourished - EENT Eyes: Present: PERRL ENT: hearing intact, clear oral mucosa - Neck Neck: Present: supple, normal ROM - Respiratory Respiratory effort: normal Respiratory: bilateral: CTA - Cardiovascular Heart rate: 78 Rhythm: regular Heart Sounds: Present: S1 & S2. Absent: rub, click - Extremities Extremities: pulses symmetrical, No edema Peripheral Pulses: within normal limits - Abdominal General gastrointestinal: Present: soft, non-tender, non-distended, normal bowel sounds Female genitourinary: Present: normal - Integumentary Integumentary: Present: clear, warm, dry - Musculoskeletal Musculoskeletal: gait normal, strength equal bilaterally - Psychiatric Psychiatric: appropriate mood/affect, intact judgment & insight - Neurologic Neurologic: CNII-XII intact, moves all extremities HEART Score - HEART Score Troponin: Troponin T < 0.010 ng/mL (0.00-0.029) 10/10/21 14:20 Results - Labs CBC & Chem 7: 10/11/21 04:59 10/11/21 04:59 Labs: Laboratory Last Values WBC 8.0 K/mm3 (4.5-11.0) 10/10/21 14:20 RBC 3.95 M/mm3 (3.65-5.03) 10/10/21 14:20 Hgb 10.3 gm/dl (10.1-14.3) 10/10/21 14:20 Hct 33.2 % (30.3-42.9) 10/10/21 14:20 MCV 84 fl (79-97) 10/10/21 14:20 MCH 26 pg (28-32) L 10/10/21 14:20 MCHC 31 % (30-34) 10/10/21 14:20 RDW 15.8 % (13.2-15.2) H 10/10/21 14:20 Plt Count 261 K/mm3 (140-440) 10/10/21 14:20 Lymph % (Auto) 32.5 % (13.4-35.0) 10/10/21 14:20 [place] % (Auto) 11.3 % (0.0-7.3) H 10/10/21 14:20 Eos % (Auto) 2.1 % (0.0-4.3) 10/10/21 14:20 Baso % (Auto) 0.5 % (0.0-1.8) 10/10/21 14:20 Lymph # (Auto) 2.6 K/mm3 (1.2-5.4) 10/10/21 14:20 [place] # (Auto) 0.9 K/mm3 (0.0-0.8) H 10/10/21 14:20 Eos # (Auto) 0.2 K/mm3 (0.0-0.4) 10/10/21 14:20 Baso # (Auto) 0.0 K/mm3 (0.0-0.1) 10/10/21 14:20 Seg Neutrophils % 53.6 % (40.0-70.0) 10/10/21 14:20 Seg Neutrophils # 4.3 K/mm3 (1.8-7.7) 10/10/21 14:20 PT 17.8 Sec. (12.2-14.9) H 10/10/21 14:20 INR 1.31 (0.87-1.13) H 10/10/21 14:20 APTT 30.2 Sec. (24.2-36.6) 10/10/21 14:20 Thrombin Time 17.7 Sec. (15.1-19.6) 10/10/21 14:20 Sodium 139 mmol/L (137-145) 10/10/21 14:20 Potassium 4.7 mmol/L (3.6-5.0) 10/10/21 14:20 Chloride 102.6 mmol/L (98-107) 10/10/21 14:20 Carbon Dioxide 26 mmol/L (22-30) 10/10/21 14:20 Anion Gap 15 mmol/L 10/10/21 14:20 BUN 11 mg/dL (7-17) 10/10/21 14:20 Creatinine 0.7 mg/dL (0.6-1.2) 10/10/21 14:20 Estimated GFR > 60 ml/min 10/10/21 14:20 BUN/Creatinine Ratio 16 % 10/10/21 14:20 Glucose 83 mg/dL (65-100) 10/10/21 14:20 POC Glucose 86 mg/dL (70-105) 10/10/21 13:20 Calcium 9.8 mg/dL (8.4-10.2) 10/10/21 14:20 Total Creatine Kinase 77 units/L (30-135) 10/10/21 14:20 CK-MB (CK-2) 1.6 ng/mL (0.0-4.0) 10/10/21 14:20 CK-MB (CK-2) Rel Index 2.0 (0-4) 10/10/21 14:20 Troponin T < 0.010 ng/mL (0.00-0.029) 10/10/21 14:20 Short CBC 10/10/21 10/11/21 Range/Units 14:20 04:59 WBC 8.0 7.2 (4.5-11.0) K/mm3 Hgb 10.3 9.7 L (10.1-14.3) gm/dl Hct 33.2 30.7 (30.3-42.9) % Plt Count 261 244 (140-440) K/mm3 BMP 10/10/21 10/11/21 14:20 04:59 Sodium 139 144 Potassium 4.7 4.0 Chloride 102.6 109.7 H Carbon Dioxide 26 24 BUN 11 10 Creatinine 0.7 0.8 Glucose 83 100 Calcium 9.8 8.7 Cardiac Enzymes 10/10/21 Range/Units 14:20 Total Creatine Kinase 77 (30-135) units/L CK-MB (CK-2) 1.6 (0.0-4.0) ng/mL Troponin T < 0.010 (0.00-0.029) ng/mL Liver Function 10/11/21 Range/Units 04:59 Total Bilirubin 0.20 (0.1-1.2) mg/dL AST 11 (5-40) units/L ALT 8 (7-56) units/L Alkaline Phosphatase 40 (35-129) units/L Albumin 3.5 L (3.9-5) g/dL - Imaging and Cardiology EKG: report reviewed Chest x-ray: report reviewed (Sinus rhythm no acute ST-T wave changes. No acute findings.) Imaging and Cardiology: +[address] No acute findings unchanged prominent ventricular caliber which is nonspecific but could represent normal pressure hydrocephalus in the correct clinical setting. Assessment and Plan Advance Directives: Yes (Full code) VTE prophylaxis?: Chemical Plan of care discussed with patient/family: Yes - Patient Problems (1) TIA (transient ischemic attack) Current Visit: Yes Status: Acute Plan to address problem: TIA work-up Patient had CTA of the head and neck We will get echocardiogram and MRI of the brain Neurology consult requested Possible discharge in 24 hours (2) Left carotid artery stenosis Current Visit: Yes Status: Acute Plan to address problem: Patient [facility] (3) HTN (hypertension) Current Visit: Yes Status: Chronic Qualifiers: Hypertension type: primary hypertension Qualified Code(s): I10 - Essential (primary) hypertension Plan to address problem: Continue antihypertensives (4) IDDM (insulin dependent diabetes mellitus) Current Visit: Yes Status: Acute Plan to address problem: Continue insulin and coverage (5) DVT prophylaxis Current Visit: No Status: Acute Plan to address problem: Patient on Xarelto and GI prophylaxis (6) Advance care planning Current Visit: Yes Status: Acute Plan to address problem: Advance care planning disease education conducted care plan discussed, diagnosis discussed, prognosis discussed. Patient is full code. Patient acknowledges understanding and agreement with care plan. +30 minutes.
[2021-10-10] MEDS ORDERED: ONDANSETRON 4 MG/2 ML INJ IV PRN (20:54)
[2021-10-10] MEDS ORDERED: ACETAMINOPHEN 325 MG TAB PO PRN (20:54)
[2021-10-10] MEDS ORDERED: oxyCODONE /ACETAMINOPHEN 5-325MG TAB PO PRN (20:56)
[2021-10-10] MEDS ORDERED: METOCLOPRAMIDE 10 MG/2 ML INJ IV PRN (20:56)
[2021-10-10] MEDS ORDERED: MORPHINE 2 MG/1 ML INJ IV PRN (20:56)
[2021-10-10] MEDS ORDERED: amLODIPine 5 MG TAB PO SCH (21:00)
[2021-10-10] MEDS ORDERED: SODIUM CHLORIDE 0.9% 1000 ML 1,000 ML IV SCH (21:00)
[2021-10-10] MEDS ORDERED: CLOPIDOGREL 75 MG TAB PO SCH (21:00)
[2021-10-10] MEDS ORDERED: hydrALAZINE 20 MG/1 ML INJ IV PRN (21:01)
[2021-10-10] MEDS ORDERED: INSULIN LISPRO 100 UNIT/ML SUB-Q ONE (21:02)
[2021-10-10] MEDS ORDERED: NON-FORMULARY EACH (Apixaban 5 MG Tablet) PO SCH (22:00)
[2021-10-10] MEDS ORDERED: NON-FORMULARY EACH (Metformin Hcl [Metformin] 1,000 MG Tablet) PO SCH (22:00)
[2021-10-10] MEDS ORDERED: HEPARIN 5,000 UNIT/1 ML VIAL SUB-Q SCH (22:00)
[2021-10-10] MEDS ORDERED: APIXABAN 5 MG TAB PO SCH (22:00)
[2021-10-10] MEDS: LISINOPRIL 10 MG TAB PO SCH (22:16)
[2021-10-10] MEDS: INSULIN NPH, HUMAN 100 UNIT/1 ML SUB-Q SCH (22:17)
[2021-10-10] MEDS: FAMOTIDINE 20 MG TAB PO SCH (22:17)
[2021-10-11 05:40] LABS: Basophils % (Auto) 0.5 % (0.0-1.8); Eosinophils # (Auto) 0.2 K/mm3 (0.0-0.4); Eosinophils % (Auto) 2.9 % (0.0-4.3); Hematocrit 30.7 % (30.3-42.9); Hemoglobin 9.7 gm/dl (10.1-14.3); Lymphocytes # (Auto) 3.1 K/mm3 (1.2-5.4); Lymphocytes % (Auto) 42.8 % (13.4-35.0); Mean Corpuscular HGB Conc 32 % (30-34); Mean Corpuscular Volume 83 fl (79-97); Monocytes # (Auto) 0.9 K/mm3 (0.0-0.8); Monocytes % (Auto) 12.6 % (0.0-7.3); Platelet Count 244 K/mm3 (140-440); Red Blood Count 3.69 M/mm3 (3.65-5.03); Red Cell Distribution Width 15.8 % (13.2-15.2)
[2021-10-11 06:24] LABS: Alanine Aminotransferase 8 units/L (7-56); Albumin 3.5 g/dL (3.9-5); BUN/Creatinine Ratio 13; Blood Urea Nitrogen 10 mg/dL (7-17); Calcium 8.7 mg/dL (8.4-10.2); Hemolysis Index 3
--- NOTE | 2021-10-11 08:42 | Consultation ---
History of Present Illness Consult date: 10/11/21 Reason for Consult: new left side weakness 1 hour resolved , Hx of right side weakness History of present illness: Left-sided weakness lasting for 1 hour History of present illness: 65-year-old -English female with history of insulin-dependent diabetes, CVA in the past, hyperlipidemia and hypertension with right-sided residual weakness presents with left-sided weakness for 1 hour which is resolved completely. Patient has no symptoms now at the time of my admissions. Patient had right internal carotid artery endarterectomy couple months ago. Patient also has left carotid artery stenosis degradation of which is not known. Patient is supposed to follow-up with [facility] vascular [place]. No dy sarthria. No weakness at this point. No diaphoresis. No chest pain. Today pt. is still with left side weakness and feels unsteady CT brain is unremarkable CTA brain is remarkable for atherosclerotic calcifications right ICA and left vertebral artery CTA nack is remarkable for interval right CEA and left ICA mild calcification with no significant stenosis According to pt. she had CTA brain and neck 2 months ago was started on Eliquis but she developed rash and was placed for short period on Plavix and is currently on Xarelto!!!! she is scheduled to see vascualr surgery some time this month MRI brain today is remarkable for tiny infarct right paraventricular area. - Past Medical History --Previous Medical History?: Yes --Hypertension: Yes --CVA: Yes Rt residual hemiparesis --Diabetes: Yes - Surgical History --Past Surgical History?: No - Social History --Smoking Status: Never Smoker --Substance Use Type: None - Medications --Home Medications: Home Medications Medication Instructions Recorded Confirmed Last Taken Type Amlodipine Besylate [Norvasc] 5 mg PO DAILY #30 04/19/20 Unknown Rx AtorvaSTATin [Lipitor] 40 mg PO QHS #30 tablet 04/19/20 Unknown Rx Clopidogrel [Plavix] 75 mg PO QDAY #30 tablet 04/19/20 Unknown Rx Insulin NPH Human Isophane 22 unit SQ BID 30 Days vial 04/19/20 Unknown Rx [Novolin N] Metformin HCl [metFORMIN] 1,000 mg PO BID 30 Days 04/19/20 Unknown Rx lisinopriL [Zestril TAB] 10 mg PO QDAY #30 04/19/20 Unknown Rx Apixaban [Eliquis] 5 mg PO BID #30 09/28/21 Unknown Rx Review of Systems ROS: Stated complaint: HEADACHE/RT SIDE PAIN/NAUSEA Other details as noted in HPI Comment: All other systems reviewed and negative Constitutional: denies: chills, fever, malaise Respiratory: denies: cough, shortness of breath Cardiovascular: denies: chest pain Gastrointestinal: denies: abdominal pain, nausea, vomiting Skin: denies: rash, lesions Neurological: headache, weakness, confusion, abnormal gait Medications and Allergies Allergies Allergy/AdvReac Type Severity Reaction Status Date / Time amoxicillin [From Augmentin] Allergy Hives Verified 04/16/20 23:00 clavulanic acid Allergy Hives Verified 04/16/20 23:00 [From Augmentin] Home Medications Medication Instructions Recorded Confirmed Last Taken Type Insulin NPH Human Isophane 22 unit SQ BID 30 Days vial 04/19/20 Unknown Rx [Novolin N] Metformin HCl [metFORMIN] 1,000 mg PO BID 30 Days 04/19/20 Unknown Rx lisinopriL [Zestril TAB] 10 mg PO QDAY #30 04/19/20 Unknown Rx Medications and Allergies Allergies Allergy/AdvReac Type Severity Reaction Status Date / Time amoxicillin [From Augmentin] Allergy Hives Verified 04/16/20 23:00 clavulanic acid Allergy Hives Verified 04/16/20 23:00 [From Augmentin] Home Medications Medication Instructions Recorded Confirmed Last Taken Type Insulin NPH Human Isophane 22 unit SQ BID 30 Days vial 04/19/20 Unknown Rx [Novolin N] Metformin HCl [metFORMIN] 1,000 mg PO BID 30 Days 04/19/20 Unknown Rx lisinopriL [Zestril TAB] 10 mg PO QDAY #30 04/19/20 Unknown Rx Active Meds: Active Medications Acetaminophen (Acetaminophen 325 Mg Tab) 650 mg PO Q4H PRN PRN Reason: Pain MILD(1-3)/Fever >100.5/WEISS Carvedilol (Carvedilol 3.125 Mg Tab) 3.125 mg PO BID JIMBO Famotidine (Famotidine 20 Mg Tab) 20 mg PO BID [facility] Last Admin: 10/10/21 22:17 Dose: 20 mg Hydralazine HCl (Hydralazine 20 Mg/1 Ml Inj) 10 mg IV Q3H PRN PRN Reason: Blood Pressure Sodium Chloride (Nacl 0.9% 1000 Ml) 1,000 mls @ 75 mls/hr IV DIRECT [facility] Stop: 10/11/21 13:00 Insulin Human NPH (Insulin Nph, Human 100 Unit/1 Ml) 14 unit SUB-Q BIDDIAB [facility] Last Admin: 10/10/21 22:17 Dose: 14 unit Lisinopril (Lisinopril 10 Mg Tab) 10 mg PO QDAY [facility] Last Admin: 10/10/21 22:16 Dose: 10 mg Metformin HCl (Metformin 500 Mg Tab) 1,000 mg PO BIDDIAB [facility] Metoclopramide HCl (Metoclopramide 10 Mg/2 Ml Inj) 10 mg IV Q6H PRN PRN Reason: Nausea And Vomiting Morphine Sulfate (Morphine 2 Mg/1 Ml Inj) 2 mg IV Q4H PRN PRN Reason: Pain, Moderate (4-6) Ondansetron HCl (Ondansetron 4 Mg/2 Ml Inj) 4 mg IV Q8H PRN PRN Reason: Nausea And Vomiting Oxycodone/Acetaminophen (Oxycodone /Acetaminophen 5-325mg Tab) 1 tab PO Q6H PRN PRN Reason: Pain, Moderate (4-6) Rivaroxaban (Rivaroxaban 20 Mg Tab) 20 mg PO QPMDIAB [facility]; Protocol Sodium Chloride (Sodium Chloride 0.9% 10 Ml Flush Syringe) 10 ml IV BID [facility] Last Admin: 10/10/21 22:17 Dose: 10 ml Sodium Chloride (Sodium Chloride 0.9% 10 Ml Flush Syringe) 10 ml IV PRN PRN PRN Reason: LINE FLUSH Physical Examination - Vital Signs Vital Signs: Vital Signs Temp Pulse Resp BP Pulse Ox 98.6 F 73 18 153/69 99 10/10/21 12:32 10/10/21 12:32 10/10/21 12:32 10/10/21 12:32 10/10/21 12:32 - Constitutional General appearance: comfortable - EENT EENT: Present: PERRL, mucous membranes moist - Respiratory Respiratory: Present: chest non-tender, lungs clear, rhonchi - Cardiovascular Cardiovascular: Present: regular rate, normal S1, normal S2 Extremities: Present: no peripheral edema bilatateraly, no clubbing, cyanosis - Gastrointestinal Gastrointestinal: Present: normoactive bowel sounds - Integumentary Integumentary: Present: normal - Neurologic Cranial nerve examination: PERRL, EOMI, intact Speech examination: intact Sensorimotor examination: intact Detailed motor examination: other (residual left side weakness upper> lower 4-/5 , gait she use [place] for ambulation) - Level of Consciousness 1a. Level of Consciousness: alert/keenly responsive - LOC Questions 1b. LOC Questions: answers both correctly - LOC Command 1c. LOC Commands: performs tasks correctly - Best Gaze 2. Best Gaze: normal - Visual 3. Visual: no visual loss - Facial Palsy 4. Facial Palsy: normal symmetrical movement - Motor Arm 5a. Motor Arm Left: drift 5b. Motor Arm Right: no drift - Motor Leg 6a. Motor Leg Left: no drift 6b. Motor Leg Right: no drift - Limb Ataxia 7. Limb Ataxia: absent - Sensory 8. Sensory: normal - Best Language 9. Best Language: no aphasia - Dysarthria 10. Dysarthria: normal - Extinction and Inattention 11. Extinction/Inattention: no abnormality - Scoring Total Score: 1 Stroke Severity: Minor Stroke Results - Laboratory Findings CBC and BMP: 10/11/21 08:23 10/11/21 08:23 Abnormal Lab Findings: Abnormal Labs 10/10/21 10/10/21 10/11/21 14:20 14:20 04:59 Hgb 9.7 L MCH 26 L 26 L RDW 15.8 H 15.8 H Lymph % (Auto) 42.8 H [place] % (Auto) 11.3 H 12.6 H [place] # (Auto) 0.9 H 0.9 H PT 17.8 H INR 1.31 H Chloride Albumin 10/11/21 04:59 Hgb MCH RDW Lymph % (Auto) [place] % (Auto) [place] # (Auto) PT INR Chloride 109.7 H Albumin 3.5 L Assessment and Plan Assessment and Plan 65-year-old -English female with history of insulin-dependent diabetes, CVA in the past, hyperlipidemia and hypertension with right-sided residual weakness presents with left-sided weakness for 1 hour which is resolved completely. Patient has no symptoms now at the time of my admissions. Patient had right internal carotid artery endarterectomy couple months ago. Patient also has left carotid artery stenosis degradation of which is not known. Patient is supposed to follow-up with [facility] vascular [place]. No dysarthria. No weakness at this point. No diaphoresis. No chest pain. - Patient Problems # left side worsening weakness lasted for one hour ? she is with hx of left side weakness remote and possibly right sided. - Exam is remarkable for residual left side weakness and slightly unsteady gait -NIH#1-2 -MRI is remarkable for right paraventricular lacunar infarct -CTA brain and neck showed atherosclerotic calcification right internal,left vertebral,and left neck ICA with no significant stenosis -she is on Xarelto ? - Lipid profil is pending -Echo is pending -A1C is pending - recommend ASA 325 mg daily and lipitor 40 mg -see no clear indication for xarelto except if cardiac etiology for her problem like AF or thrombus !!!! -kepp her appointment with vascular surgery -Pt therapy # Left carotid artery stenosis -Patient [facility] -CTA brain and neck showed no significant stenosis -she is s/p right CEA # HTN (hypertension) -Continue antihypertensives # IDDM (insulin dependent diabetes mellitus) -Continue insulin and coverage -A1C # DVT prophylaxis -Patient on Xarelto and GI prophylaxis PLAN 1- ASA 325 mg daily 2- Lipitor 40 mg daily 3- review echo and cardiac Monitoring 4- Lipid profil and A1C 5- maintain appoitment with vascualr surgery 6- Not sure about the indication of xarelto !!! 7- Markus Avelar 8- Pt therapy 9- consider [facility] and or cardiology follow up 10-Neurolgoy follow up will follow as needed
--- NOTE | 2021-10-11 09:19 | Electrocardiograph Report ---
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
[2021-10-11 09:22] LABS: Hematocrit 32.2 % (30.3-42.9); Hemoglobin 10.1 gm/dl (10.1-14.3); Mean Corpuscular HGB Conc 31 % (30-34); Mean Corpuscular Volume 84 fl (79-97); Platelet Count 250 K/mm3 (140-440); Red Blood Count 3.84 M/mm3 (3.65-5.03); Red Cell Distribution Width 15.7 % (13.2-15.2)
--- NOTE | 2021-10-11 09:29 | Progress Note ---
Assessment and Plan Assessment and plan: --Acute CVA versus TIA Current Visit: Yes Status: Acute Not a candidate for TPA Neuro work-up is in progress Aspirin and statin Neurology evaluation noted and appreciated Patient had CTA of the head and neck Follow echo. MRI brain PT OT rehab DC planning --Left carotid artery stenosis Current Visit: Yes Status: Acute Patient sees Dr[facility] Continue antiplatelets and statin --HTN (hypertension) Current Visit: Yes Status: Chronic Continue antihypertensives -Type II IDDM (insulin dependent diabetes mellitus) Current Visit: Yes Status: Acute Accu-Chek sliding scale coverage ADA diet Long-acting insulin as needed Check A1c, diabetic education, nutrition education prior to discharge --DVT prophylaxis Current Visit: No Status: Acute Patient on Xarelto and GI prophylaxis --Advance care planning Current Visit: Yes Status: Acute Advance care planning disease education conducted care plan discussed, diagnosis discussed, prognosis discussed. Patient is full code. Patient acknowledges understanding and agreement with care plan. +30 minutes. Closely monitor the patient and adjust management as needed Plan of care reviewed with the patient and her nurse History Interval history: I have seen and examined the patient at the bedside Patient's chart and medications reviewed No new events reported by nursing staff Complains of generalized weakness Neuro work-up is in progress Hospitalist Physical - Constitutional Vitals: Temp Pulse Resp BP Pulse Ox 98.2 F 81 16 142/71 98 10/11/21 03:05 10/11/21 03:05 10/11/21 03:05 10/11/21 03:05 10/11/21 08:18 General appearance: Present: no acute distress, well-nourished - EENT Eyes: Present: PERRL, EOM intact - Neck Neck: Present: supple, normal ROM - Respiratory Respiratory effort: normal Respiratory: bilateral: diminished, negative: rales, rhonchi, wheezing - Cardiovascular Rhythm: regular Heart Sounds: Present: S1 & S2 - Extremities Extremities: no ischemia, No edema - Abdominal General gastrointestinal: soft, non-tender, non-distended, normal bowel sounds - Integumentary Integumentary: Present: clear, warm - Psychiatric Psychiatric: appropriate mood/affect, cooperative - Neurologic Neurologic: moves all extremities HEART Score - HEART Score Troponin: Troponin T < 0.010 ng/mL (0.00-0.029) 10/10/21 14:20 Results - Labs CBC & Chem 7: 10/11/21 08:23 10/11/21 08:23 Labs: Laboratory Last Values WBC 6.5 K/mm3 (4.5-11.0) 10/11/21 08:23 RBC 3.84 M/mm3 (3.65-5.03) 10/11/21 08:23 Hgb 10.1 gm/dl (10.1-14.3) 10/11/21 08:23 Hct 32.2 % (30.3-42.9) 10/11/21 08:23 MCV 84 fl (79-97) 10/11/21 08:23 MCH 26 pg (28-32) L 10/11/21 08:23 MCHC 31 % (30-34) 10/11/21 08:23 RDW 15.7 % (13.2-15.2) H 10/11/21 08:23 Plt Count 250 K/mm3 (140-440) 10/11/21 08:23 Lymph % (Auto) 42.8 % (13.4-35.0) H 10/11/21 04:59 Levy % (Auto) 12.6 % (0.0-7.3) H 10/11/21 04:59 Eos % (Auto) 2.9 % (0.0-4.3) 10/11/21 04:59 Baso % (Auto) 0.5 % (0.0-1.8) 10/11/21 04:59 Lymph # (Auto) 3.1 K/mm3 (1.2-5.4) 10/11/21 04:59 Levy # (Auto) 0.9 K/mm3 (0.0-0.8) H 10/11/21 04:59 Eos # (Auto) 0.2 K/mm3 (0.0-0.4) 10/11/21 04:59 Baso # (Auto) 0.0 K/mm3 (0.0-0.1) 10/11/21 04:59 Seg Neutrophils % 41.2 % (40.0-70.0) 10/11/21 04:59 Seg Neutrophils # 3.0 K/mm3 (1.8-7.7) 10/11/21 04:59 PT 17.8 Sec. (12.2-14.9) H 10/10/21 14:20 INR 1.31 (0.87-1.13) H 10/10/21 14:20 APTT 30.2 Sec. (24.2-36.6) 10/10/21 14:20 Thrombin Time 17.7 Sec. (15.1-19.6) 10/10/21 14:20 Sodium 144 mmol/L (137-145) 10/11/21 04:59 Potassium 4.0 mmol/L (3.6-5.0) 10/11/21 04:59 Chloride 109.7 mmol/L (98-107) H 10/11/21 04:59 Carbon Dioxide 24 mmol/L (22-30) 10/11/21 04:59 Anion Gap 14 mmol/L 10/11/21 04:59 BUN 10 mg/dL (7-17) 10/11/21 04:59 Creatinine 0.8 mg/dL (0.6-1.2) 10/11/21 04:59 Estimated GFR > 60 ml/min 10/11/21 04:59 BUN/Creatinine Ratio 13 % 10/11/21 04:59 Glucose 100 mg/dL (65-100) 10/11/21 04:59 POC Glucose 80 mg/dL (70-105) 10/11/21 07:55 Calcium 8.7 mg/dL (8.4-10.2) 10/11/21 04:59 Total Bilirubin 0.20 mg/dL (0.1-1.2) 10/11/21 04:59 AST 11 units/L (5-40) 10/11/21 04:59 ALT 8 units/L (7-56) 10/11/21 04:59 Alkaline Phosphatase 40 units/L (35-129) 10/11/21 04:59 Total Creatine Kinase 77 units/L (30-135) 10/10/21 14:20 CK-MB (CK-2) 1.6 ng/mL (0.0-4.0) 10/10/21 14:20 CK-MB (CK-2) Rel Index 2.0 (0-4) 10/10/21 14:20 Troponin T < 0.010 ng/mL (0.00-0.029) 10/10/21 14:20 Total Protein 6.4 g/dL (6.3-8.2) 10/11/21 04:59 Albumin 3.5 g/dL (3.9-5) L 10/11/21 04:59 Albumin/Globulin Ratio 1.2 % 10/11/21 04:59 Active Medications - Current Medications Current Medications: Generic Name Dose Route Start Last Admin Trade Name Freq PRN Reason Stop Dose Admin Acetaminophen 650 mg 10/10/21 20:54 Acetaminophen 325 Mg Tab PO Q4H PRN Pain MILD(1-3)/Fever >100.5/WEISS Carvedilol 3.125 mg 10/11/21 10:00 Carvedilol 3.125 Mg Tab PO BID JIMBO Famotidine 20 mg 10/10/21 22:00 10/10/21 22:17 Famotidine 20 Mg Tab PO 20 mg BID JIMBO Administration Hydralazine HCl 10 mg 10/10/21 21:01 Hydralazine 20 Mg/1 Ml Inj IV Q3H PRN Blood Pressure Sodium Chloride 1,000 mls @ 75 mls/hr 10/10/21 21:00 Nacl 0.9% 1000 Ml IV 10/11/21 13:00 DIRECT JIMBO Insulin Human NPH 14 unit 10/10/21 22:00 10/10/21 22:17 Insulin Nph, Human 100 Unit/1 Ml SUB-Q 14 unit BIDDIAB JIMBO Administration Lisinopril 10 mg 10/10/21 21:00 10/10/21 22:16 Lisinopril 10 Mg Tab PO 10 mg QDAY JIMBO Administration Metformin HCl 1,000 mg 10/11/21 08:00 Metformin 500 Mg Tab PO BIDDIAB JIMBO Metoclopramide HCl 10 mg 10/10/21 20:56 Metoclopramide 10 Mg/2 Ml Inj IV Q6H PRN Nausea And Vomiting Morphine Sulfate 2 mg 10/10/21 20:56 Morphine 2 Mg/1 Ml Inj IV Q4H PRN Pain, Moderate (4-6) Ondansetron HCl 4 mg 10/10/21 20:54 Ondansetron 4 Mg/2 Ml Inj IV Q8H PRN Nausea And Vomiting Oxycodone/Acetaminophen 1 tab 10/10/21 20:56 Oxycodone /Acetaminophen 5-325mg Tab PO Q6H PRN Pain, Moderate (4-6) Rivaroxaban 20 mg 10/11/21 17:00 Rivaroxaban 20 Mg Tab PO QPMDIAB [facility] Protocol Sodium Chloride 10 ml 10/10/21 22:00 10/10/21 22:17 Sodium Chloride 0.9% 10 Ml Flush Syringe IV 10 ml BID JIMBO Administration Sodium Chloride 10 ml 10/10/21 20:54 Sodium Chloride 0.9% 10 Ml Flush Syringe IV PRN PRN LINE FLUSH
[2021-10-11 09:36] LABS: INR 1.09 (0.87-1.13)
[2021-10-11 09:37] LABS: Partial Thromboplastin Time 30.2 Sec. (24.2-36.6)
[2021-10-11] MEDS: INSULIN NPH, HUMAN 100 UNIT/1 ML SUB-Q SCH ×2 (09:59→16:59)
[2021-10-11] MEDS: metFORMIN 500 MG TAB PO SCH ×3 (09:59→16:56)
[2021-10-11] MEDS ORDERED: APIXABAN 5 MG TAB PO SCH (10:00)
--- NOTE | 2021-10-11 11:32 | Magnetic Resonance Report ---
MR brain wo con INDICATION / CLINICAL INFORMATION: 65 years Female; TIA, DIZZINESS & UNSTABLE. TECHNIQUE: Multiplanar, multisequence MR images of the brain were obtained. COMPARISON: The study is compared to previous MRI of 04/16/2020. FINDINGS: BRAIN / INTRACRANIAL CONTENTS: There is notable a cerebral white matter disease most probably involvi ng periventricular regions and most consistent with microvascular angiopathy. Additionally, there are foci of increased diffusion signal along the right periventricular regions, larger on the right sanjiv uring 9 mm transversely. Furthermore, there appears be subtle corresponding decreased signal on ADC m ap and the findings would be indicative of subacute infarction. The cerebral white matter changes sadie ear to mildly progressed from the previous exam. There have been interval evolutionary changes of the scattered foci of infarction within the right cerebral hemisphere from the previous MRI. There is continued enlargement of the lateral ventricles which may be out of proportion to the degree of cerebral atrophy. Additionally, there is again note of relative effacement of the sulci near the vertex and the findings may be seen with normal pressure hydrocephalus. No developing extra-axial flu id collections are identified. CRANIOCERVICAL JUNCTION: No significant abnormality. VASCULAR FLOW-VOIDS: No significant abnormality. ORBITS: No significant abnormality of visualized orbits. SINUSES / MASTOIDS: There are focal inflammatory changes along the posterior right ethmoid air cells. ADDITIONAL FINDINGS: None. IMPRESSION: 1. The findings are indicative of small foci of subacute infarction along the right periventricular r egion as detailed above. 2. There appears be mild interval progression of the overall moderate microvascular angiopathy from . 3. There is continued prominence of the ventricular system as described and correlation would be need ed regarding normal pressure hydrocephalus. Signer Name: Cayetano Abarca MD Signed: 10/11/2021 11:27 AM Workstation Name: [id number]
[2021-10-11] MEDS: LISINOPRIL 10 MG TAB PO SCH (12:11)
[2021-10-11] MEDS: FAMOTIDINE 20 MG TAB PO SCH ×2 (12:12→21:02)
[2021-10-11] MEDS: carvediloL 3.125 MG TAB PO SCH ×2 (12:12→21:02)
--- NOTE | 2021-10-11 12:30 | Cat Scan Report ---
CT angio neck INDICATION / CLINICAL INFORMATION: 65 years Female; cva OMNI 350 100 ML. TECHNIQUE: Thin cut axial images obtained through the head during IV bolus contrast administration. S agittal, coronal, and 3 plane MIP reconstructions performed by the technologist. NASCET type criteria used evaluate stenoses. All CT scans at this location are performed using CT dose reduction for ALAR A by means of automated exposure control. COMPARISON: The study is compared to previous CT of 04/16/2020. FINDINGS: CAROTID ARTERIES: The motion and beam hardening degrade the image quality. However, there has been in terval right carotid endarterectomy without significant recurrent spinal stenosis by NASCET to criter ia. There is atherosclerotic calcification involving proximal left ICA without significant developing mahesh nosis by NASCET to criteria. VERTEBRAL ARTERIES: The proximal vertebral arteries are particularly obscured by the beam hardening a t. However, there is no clear CTA evidence of significant developing stenosis of the cervical vertebr al arteries. ARCH: There is mild calcification involving aortic arch without clear evidence of significant stenosi s of the origins of the arch vessels. ADDITIONAL FINDINGS: There is continued nodular appearance of the thyroid gland, particularly involvi ng the isthmus which is unchanged. IMPRESSION: There has been interval right carotid endarterectomy from 04/16/2020 without significant recurrent mahesh nosis. There is continued atherosclerotic calcification involving proximal left ICA without significant sten osis by NASCET criteria. Signer Name: Cayetano Abarca MD Signed: 10/11/2021 12:24 PM Workstation Name: [id number]
--- NOTE | 2021-10-11 12:34 | Cat Scan Report ---
CT angio head INDICATION / CLINICAL INFORMATION: 65 years Female; cva OMNI 350 100 ML. TECHNIQUE: Thin cut axial images obtained through the head during IV bolus contrast administration. S agittal, coronal, and 3 plane MIP reconstructions performed by the technologist. NASCET type criteria used evaluate stenoses. Automated exposure control utilized for radiation reduction purposes. COMPARISON: The study is compared to previous CT of 04/16/2020. FINDINGS: INTERNAL CAROTID ARTERIES: There is continued calcification involving intracranial ICAs with mild edwin rowing of the right, particularly the ophthalmic and clinoid segments at. No developing stenosis is s een on the left. VERTEBROBASILAR SYSTEM: There has been interval increase in the calcification involving the left vert ebral artery at the craniocervical junction with mild stenosis. There is no developing stenosis of th e basilar artery. CEREBRAL ARTERIES: There is no developing stenosis involving proximal cerebral arteries or adjacent s egments at. ANEURYSM: None identified. ADDITIONAL FINDINGS: Remainder of the surrounding soft tissues are grossly normal. IMPRESSION: There is atherosclerotic calcification with mild narrowing involving intracranial right ICA and left vertebral artery as detailed above. There is no CT evidence of large vessel occlusion. Signer Name: Cayetano Abarca MD Signed: 10/11/2021 12:30 PM Workstation Name: [id number]
[2021-10-11 14:25] LABS: Chol/HDL Ratio 3.22 %
[2021-10-11] MEDS ORDERED: RIVAROXABAN 20 MG TAB PO SCH ×2 (18:00→20:00)
[2021-10-11] MEDS: hydrALAZINE 25 MG TAB PO SCH ×2 (18:14→21:02)
[2021-10-12] MEDS: hydrALAZINE 25 MG TAB PO SCH (06:09)
[2021-10-12 08:04] VITALS: BP 152/80
--- NOTE | 2021-10-12 08:44 | Discharge Summary ---
Providers - Providers Date of Admission: 10/10/21 20:54 Date of discharge: 10/12/21 Attending physician: CHASTITY EPPERSON 10/10/21 20:56 Consult to Physician [CONS] Routine Comment: Consulting Provider: KEATON PAIZ Physician Instructions: Reason For Exam: TIA 10/10/21 21:00 Physical Therapy Evaluation and Treat [CONS] Routine Comment: Reason For Exam: TIA, right side hemiparesis Primary care physician: [employer] Hospitalization Condition: Stable Hospital course: --Acute CVA versus TIA Current Visit: Yes Status: Acute Not a candidate for TPA Neuro work-up is in progress Aspirin and statin Neurology evaluation noted and appreciated Patient had CTA of the head and neck Follow echo. MRI brain PT OT rehab DC planning --Left carotid artery stenosis Current Visit: Yes Status: Acute Patient sees Dr. [facility] Continue antiplatelets and statin --HTN (hypertension) Current Visit: Yes Status: Chronic Continue antihypertensives -Type II IDDM (insulin dependent diabetes mellitus) Current Visit: Yes Status: Acute Accu-Chek sliding scale coverage ADA diet Long-acting insulin as needed Check A1c, diabetic education, nutrition education prior to discharge --DVT prophylaxis Current Visit: No Status: Acute Patient on Xarelto and GI prophylaxis Disposition: LEFT AGAINST MEDICAL ADVICE Exam - Constitutional Vitals: Temp Pulse Resp BP Pulse Ox 98.4 F 90 18 152/80 97 10/12/21 07:51 10/12/21 07:51 10/12/21 07:51 10/12/21 07:51 10/12/21 07:51 Plan Follow up with: ABDIRAHMAN MOHAMUD MD [Primary Care Provider] - 3-5 Days
[2021-10-12] MEDS ORDERED: ASPIRIN EC 325 MG TAB PO SCH (10:00)
== END 2021-10-12 11:01 | disposition left against medical advice (07) ==
LOC: ED 11:20 → 4A 20:54
PROVIDERS: ADMIT Internal Medicine; ATTEND Internal Medicine
DX: I63.9 Cerebral infarction, unspecified (principal); I10 Essential (primary) hypertension; I65.22 Occlusion and stenosis of left carotid artery; E11.9 Type 2 diabetes mellitus without complications; R29.702 NIHSS score 2; Z79.4 Long term (current) use of insulin; Z79.84 Long term (current) use of oral hypoglycemic drugs; Z86.73 Personal history of transient ischemic attack (TIA), and cerebral infarction without residual deficits
CPT/HCPCS: 36415; 70450; 70496; 70498; 70551; 80048; 80053; 80061; 82550; 82553; 82565; 82962; 84484; 85025; 85027; 85610; 85670; 85730; 93005; 97161; 97530; 99285; C8929; G0378; Q9967; 93306; J2354; J1815